=== PATIENT | female | born 1965 | race Caucasian/White ===

== ENCOUNTER 2016-06-01 12:11 | Emergency (ER) | payer BC ==
--- NOTE | 2016-06-01 12:14 | EDM.PDOC ---
ED HPI DIZZINESS - General Chief Complaint: Gastrointestinal Problem Stated Complaint: PROJECTILE VOMITTING Time Seen by Provider: 06/01/16 12:14 Source of Information: Reports: Patient, Old records, RN, RN notes reviewed Exam Limitations: Reports: No limitations - History of Present Illness INITIAL COMMENTS - FREE TEXT/NARRATIVE: Arrives from home by POV with c/o projectile vomiting, abdominal pain, and distention that began last night, but is much worse today. Pt denies fever, chills, constipation, chest pain, or edema. She admits to some "pure water" BM' s last night and today. Pt admits that she drinks 4 beers nightly during the week and more that 6 on the weekends. Symptom Onset Date: 05/31/16 Timing/Duration: Reports: Constant, Getting worse Baseline Function: Reports: ambulatory Quality: Reports: lightheaded (with vomiting) Severity: severe Context, Dizziness: Reports: alcohol abuse - Related Data Allergies/ADRs: Allergies Allergy/AdvReac Type Severity Reaction Status Date / Time peanut Allergy Anaphylactic Verified 12/09/13 00:48 Shock Home Meds: Home Meds Diazepam [Valium] 10 mg PO QID PRN 12/09/13 [History] FLUoxetine [PROzac] 40 mg PO DAILY 12/09/13 [History] Mirtazapine [Remeron] 30 mg PO DAILY 12/09/13 [History] Past Medical History HEENT History: Reports: Hard of hearing, Other (see below) (chronic dental decay ) Gastrointestinal History: Reports: Cholelithiasis [employer]ER History: Reports: Endometriosis Neurological History: Reports: Migraines Psychiatric History: Reports: Anxiety, Depression - Past Surgical History HEENT Surgical History: Reports: Tonsillectomy, Other (see below) Other HEENT Surgeries/Procedures: ear surgery GI Surgical History: Reports: Appendectomy, Cholecystectomy, Colonoscopy, EGD Female Surgical History: Reports: section, Hysterectomy, Salpingo- oophorectomy (B/L) Social & Family History - Family History Family Medical History: Noncontributory - Tobacco Use Smoking Status *Q: Current Every Day Smoker Tobacco Use Within Last Twelve Months: Cigarettes Years of Tobacco use: 20 Packs/Tins Daily: 0.5 Used Tobacco, but Quit: No Smoking Cessation Information Provided To Patient: No Second Hand Smoke Exposure: Yes - Caffeine Use Caffeine Use: Reports: Coffee - Alcohol Use Alcohol Use History: Yes Days Per Week of Alcohol Use: 7 Number of Drinks Per Day: 4 Total Drinks Per Week: 28 Alcohol Use in Last Twelve Months: Yes Alcohol Use Frequency: Daily - Recreational Drug Use Recreational Drug Use: No - Living Situation & Occupation Living situation: Reports: with significant other Occupation: employed ED ROS GENERAL - Review of Systems Review Of Systems: ROS reveals no pertinent complaints other than HPI. ED EXAM, DIZZINESS - Physical Exam Exam: See Below Exam Limited By: No limitations General Appearance: alert, WD/WN, no apparent distress Eye Exam: bilateral eye: normal inspection Nose: normal inspection Throat/Mouth: Normal lips, Normal oropharynx, Normal voice, No airway compromise , Other (dry oral membranes) Head Exam: atraumatic, normocephalic Neck: normal inspection, supple, non-tender, full range of motion Respiratory/Chest: no respiratory distress, lungs clear, normal breath sounds, no accessory muscle use, chest non-tender Cardiovascular: normal peripheral pulses, regular rate, rhythm, no edema, no gallop, no JVD, no murmur, tachycardia GI/Abdominal: distended, guarding, tender (generalized), abnormal bowel sounds: (typmpanic, high pitched and hypoactive bowel sounds) (Female) Exam: Deferred Rectal (Female) Exam: Deferred Neurological: alert, normal mood/affect, CN II-XII intact, no motor/sensory deficits, oriented x 3 Back Exam: normal inspection, full range of motion, NT Extremities: normal inspection, normal range of motion, non-tender, no pedal edema, normal capillary refill Psychiatric: normal affect, normal mood Skin Exam: Warm, Dry, Intact, Normal color, No rash Course - Vital Signs Last Recorded V/S: Last Vital Signs Temp 37.1 C 06/01/16 12:15 Pulse 133 H 06/01/16 12:15 Resp 16 06/01/16 12:15 BP 113/87 06/01/16 12:15 Pulse Ox 95 06/01/16 12:15 - Orders/Labs/Meds Orders: Active Orders 24 hr Category Date Time Status Peripheral IV Care [RC] . DIRECTED Care 06/01/16 12:32 Active CULTURE STOOL [RM] Stat Lab 06/01/16 13:24 Uncollected MVI, Adult with Vitamin K [Infuvite Adult] 10 ml Med 06/01/16 13:46 Active Thiamine [Vitamin B-1] 100 mg Folic Acid 1 mg Lactated Ringers [Ringers, Lactated] 1,000 ml IV .BOLUS Sodium Chloride 0.9% [Saline Flush] [facility] 06/01/16 12:31 Active 10 ml FLUSH ASDIRECTED PRN NG [Nasogastric Orogastric Tube Insertion] [OM.PC] Ot 06/01/16 13:50 Ordered Routine Peripheral IV Insertion Adult [OM.PC] Stat Ot 06/01/16 12:32 Ordered Medication Orders Multivitamins/Minerals 10 ml/Thiamine HCl 100 mg/ Folic Acid 1 mg/ Lactated Ringer's 1,011.2 mls @ 999 mls/hr IV .BOLUS ONE Stop: 06/01/16 14:46 Last Admin: 06/01/16 14:34 Dose: 999 mls/hr Sodium Chloride (Saline Flush) 10 ml FLUSH ASDIRECTED PRN PRN Reason: Keep Vein Open Last Admin: 06/01/16 12:45 Dose: 10 ml Labs: Laboratory Tests 06/01/16 06/01/16 06/01/16 Range/Units 12:39 12:39 13:05 WBC 8.7 (5.0-10.0) 10^3/uL RBC 4.81 (4.2-5.4) 10^6/uL Hgb 15.5 (12.0-16.0) g/dL Hct 47.1 H (37.0-47.0) % MCV 97.9 (80-100) fL MCH 32.2 (27.0-34.0) pg MCHC 32.9 L (33.0-35.0) g/dL Plt Count 422 (150-450) 10^3/uL Neut % (Auto) 79.3 H (42.2-75.2) % Lymph % (Auto) 10.9 L (20.5-50.1) % [place] % (Auto) 9.5 H (2-8) % Eos % (Auto) 0.2 L (1.0-3.0) % Baso % (Auto) 0.1 (0.0-1.0) % Sodium 138 (135-145) mmol/L Potassium 4.0 (3.6-5.0) mmol/L Chloride 97 L (101-111) mmol/L Carbon Dioxide 24.0 (21.0-31.0) mmol/L Anion Gap 21.0 BUN 22 H (7-18) mg/dL Creatinine 1.3 (0.6-1.3) mg/dL Est Cr Clr Drug Dosing 52.90 mL/min Estimated GFR (MDRD) 43 BUN/Creatinine Ratio 16.92 Glucose 135 H (74-105) mg/dL Calcium 9.9 (8.4-10.2) mg/dl Total Bilirubin 1.1 H (0.2-1.0) mg/dL AST 130 H (10-42) IU/L ALT 77 H (10-60) IU/L Alkaline Phosphatase 189 H (42-121) IU/L Total Protein 8.6 H (6.7-8.2) g/dl Albumin 5.1 (3.2-5.5) g/dl Globulin 3.5 Albumin/Globulin Ratio 1.46 Amylase 39 (28-100) U/L Lipase 19 L (22-51) U/L Urine Color (YELLOW) Urine Appearance (CLEAR) Urine pH (5.0-9.0) Ur Specific [place] (1.005-1.030) Urine Protein (NEGATIVE) Urine Glucose (UA) (NEGATIVE) Urine Ketones (NEGATIVE) Urine Occult Blood (NEGATIVE) Urine Nitrite (NEGATIVE) Urine Bilirubin (NEGATIVE) Urine Urobilinogen (0.2-1.0) mg/dL Ur Leukocyte Esterase (NEGATIVE) Urine RBC /HPF Urine WBC (0-5/HPF) /HPF Ur Epithelial Cells /HPF Urine Bacteria (0-FEW/HPF) /HPF Hyaline Casts /LPF Urine Opiates Screen Negative (NEGATIVE) Ur Oxycodone Screen Negative (NEGATIVE) Urine Methadone Screen Negative (NEGATIVE) Ur Barbiturates Screen Negative (NEGATIVE) U Tricyclic Antidepress Negative (NEGATIVE) Ur Phencyclidine Scrn Negative (NEGATIVE) Ur Amphetamine Screen Negative (NEGATIVE) U Methamphetamines Scrn Negative (NEGATIVE) Urine MDMA Screen Negative (NEGATIVE) U Benzodiazepines Scrn Positive H (NEGATIVE) Urine Cocaine Screen Negative (NEGATIVE) U Marijuana (THC) Screen Negative (NEGATIVE) Ethyl Alcohol < 5 mg/dL 06/01/ Range/Units 13:05 WBC (5.0-10.0) 10^3/uL RBC (4.2-5.4) 10^6/uL Hgb (12.0-16.0) g/dL Hct (37.0-47.0) % MCV (80-100) fL MCH (27.0-34.0) pg MCHC (33.0-35.0) g/dL Plt Count (150-450) 10^3/uL Neut % (Auto) (42.2-75.2) % Lymph % (Auto) (20.5-50.1) % [place] % (Auto) (2-8) % Eos % (Auto) (1.0-3.0) % Baso % (Auto) (0.0-1.0) % Sodium (135-145) mmol/L Potassium (3.6-5.0) mmol/L Chloride (101-111) mmol/L Carbon Dioxide (21.0-31.0) mmol/L Anion Gap BUN (7-18) mg/dL Creatinine (0.6-1.3) mg/dL Est Cr Clr Drug Dosing mL/min Estimated GFR (MDRD) BUN/Creatinine Ratio Glucose (74-105) mg/dL Calcium (8.4-10.2) mg/dl Total Bilirubin (0.2-1.0) mg/dL AST (10-42) IU/L ALT (10-60) IU/L Alkaline Phosphatase (42-121) IU/L Total Protein (6.7-8.2) g/dl Albumin (3.2-5.5) g/dl Globulin Albumin/Globulin Ratio Amylase (28-100) U/L Lipase (22-51) U/L Urine Color Yellow (YELLOW) Urine Appearance Slightly cloudy (CLEAR) Urine pH 5.5 (5.0-9.0) Ur Specific [place] >= 1.030 (1.005-1.030) Urine Protein 30 H (NEGATIVE) Urine Glucose (UA) Negative (NEGATIVE) Urine Ketones Trace H (NEGATIVE) Urine Occult Blood Negative (NEGATIVE) Urine Nitrite Negative (NEGATIVE) Urine Bilirubin Moderate H (NEGATIVE) Urine Urobilinogen 0.2 (0.2-1.0) mg/dL Ur Leukocyte Esterase Negative (NEGATIVE) Urine RBC 0-5 /HPF Urine WBC 0-5 (0-5/HPF) /HPF Ur Epithelial Cells Moderate H /HPF Urine Bacteria Many H (0-FEW/HPF) /HPF Hyaline Casts Moderate H /LPF Urine Opiates Screen (NEGATIVE) Ur Oxycodone Screen (NEGATIVE) Urine Methadone Screen (NEGATIVE) Ur Barbiturates Screen (NEGATIVE) U Tricyclic Antidepress (NEGATIVE) Ur Phencyclidine Scrn (NEGATIVE) Ur Amphetamine Screen (NEGATIVE) U Methamphetamines Scrn (NEGATIVE) Urine MDMA Screen (NEGATIVE) U Benzodiazepines Scrn (NEGATIVE) Urine Cocaine Screen (NEGATIVE) U Marijuana (THC) Screen (NEGATIVE) Ethyl Alcohol mg/dL Meds: Medications Generic Name Dose Route Start Last Admin Trade Name Freq PRN Reason Stop Dose Admin Multivitamins/Minerals 10 ml/ 1,011.2 mls @ 999 mls/hr 06/01/16 13:46 14:34 Thiamine HCl 100 mg/ Folic IV 06/01/16 14:46 999 mls/hr Acid 1 mg/ Lactated Ringer's .BOLUS ONE Administration Sodium Chloride 10 ml 06/01/16 12:31 06/01/16 12:45 Saline Flush FLUSH 10 ml ASDIRECTED PRN Administration Keep Vein Open Discontinued Medications Generic Name Dose Route Start Last Admin Trade Name Freq PRN Reason Stop Dose Admin Diazepam 5 mg 06/01/16 13:45 06/01/16 13:56 Valium IVPUSH 06/01/16 13:46 5 mg ONETIME ONE Administration Hydromorphone HCl 1 mg 06/01/16 12:33 06/01/16 12:50 Dilaudid IVPUSH 06/01/16 12:34 1 mg ONETIME ONE Administration Hydromorphone HCl 1 mg 06/01/16 14:36 Dilaudid IVPUSH 06/01/16 14:37 ONETIME ONE Sodium Chloride 1,000 mls @ 999 mls/hr 06/01/16 12:33 06/01/16 12:48 Normal Saline IV 06/01/16 13:33 999 mls/hr .BOLUS ONE Administration Iopamidol 75 ml 06/01/16 13:20 Isovue-300 (61%) IVPUSH 06/01/16 13:21 ONETIME ONE Ondansetron HCl 4 mg 06/01/16 12:33 06/01/16 12:48 Zofran IV 06/01/16 12:34 4 mg ONETIME ONE Administration Ondansetron HCl 4 mg 06/01/16 14:36 Zofran IV 06/01/16 14:37 ONETIME ONE - Radiology Interpretation Free Text/Narrative:: CT Abd/Pelvis: mechanical SBO per Rad. report. CT Results Date: 06/01/16 - Re-Assessments/Exams Free Text/Narrative Re-Assessment/Exam: 06/01/16 14:43 I explained the exam findings, results of all diagnostic tests, working diagnosis, and any potential or additionally considered diagnoses, treatment/ disposition plan, self/home care instructions, rational for the diagnosis/ treatment plan/disposition plan, anticipated course of illness, and follow up instructions to the pt and/or pts family or guardian. The pt and/or pts family or guardian acknowledges understanding of the above explanation(s), and of the signs and symptoms which should prompt the return of the pt to the ER should those or any other concerning symptoms develop. Departure - Departure Time of Disposition: 14:41 Disposition: DC/[facility] to [facility] 02 Condition: serious Clinical Impression: Small bowel obstruction Forms: ED Department Discharge, Interfacility Transfer EMTALA - My Orders Last 24 Hours: My Active Orders 06/01/16 12:31 Sodium Chloride 0.9% [Saline Flush] 10 ml FLUSH ASDIRECTED PRN 06/01/16 12:32 Peripheral IV Care [RC] . DIRECTED Peripheral IV Insertion Adult [OM.PC] Stat 06/01/16 13:24 CULTURE STOOL [RM] Stat 06/01/16 13:46 MVI, Adult with Vitamin K [Infuvite Adult] 10 ml Thiamine [Vitamin B-1] 100 mg Folic Acid 1 mg Lactated Ringers [Ringers, Lactated] 1,000 ml IV .BOLUS 06/01/16 13:50 NG [Nasogastric Orogastric Tube Insertion] [OM.PC] Routine - Assessment/Plan Last 24 Hours: My Active Orders 06/01/16 12:31 Sodium Chloride 0.9% [Saline Flush] 10 ml FLUSH ASDIRECTED PRN 06/01/16 12:32 Peripheral IV Care [RC] . DIRECTED Peripheral IV Insertion Adult [OM.PC] Stat 06/01/16 13:24 CULTURE STOOL [RM] Stat 06/01/16 13:46 MVI, Adult with Vitamin K [Infuvite Adult] 10 ml Thiamine [Vitamin B-1] 100 mg Folic Acid 1 mg Lactated Ringers [Ringers, Lactated] 1,000 ml IV .BOLUS 06/01/16 13:50 NG [Nasogastric Orogastric Tube Insertion] [OM.PC] Routine
[2016-06-01] MEDS ORDERED: Sodium Chloride 0.9% 10 ML Syringe FLUSH PRN (12:31)
[2016-06-01 12:32] VITALS: BP 113/87
[2016-06-01] MEDS ORDERED: HYDROmorphone 1 MG/ML Syringe IVPUSH ONE ×2 (12:33→14:36)
[2016-06-01] MEDS ORDERED: Sodium Chloride 0.9% 1,000 ML IV ONE (12:33)
[2016-06-01] MEDS ORDERED: Ondansetron 4 MG/2 ML SDV IV ONE ×2 (12:33→14:36)
[2016-06-01 13:06] LABS: CHLORIDE,CL 97 mmol/L (101-111); SODIUM,NA 138 mmol/L (135-145)
[2016-06-01] MEDS ORDERED: Iopamidol 612 MG/ML 75 ML Bottle IVPUSH ONE (13:20)
[2016-06-01] MEDS ORDERED: MVI, Adult with Vitamin K 10 ML, Thiamine 100 MG, Folic Acid 1 MG in Lactated Ringers 1... IV ONE ×4 (13:46)
--- NOTE | 2016-06-01 14:15 | CT ---
History: 51-year-old 146 pound female smoker with history "kidney stones" who has had previous hyste rectomy (probable appendectomy") now with abdominal distention and pain. Scan technique: Volume acquisition of data from the abdomen and pelvis obtained without oral contras t but during intravenous ministration 75 cc nonionic Isovue while patient was lying supine on the [facility] multi slice CT scanner [place], [place]. All data archived in [facility] PACS system for storage, reformatting and study. Interpretation: Abnormal. Generalized dilatation fluid-filled small bowel loops this patient with numerous surgical clips in t he right hemipelvis following the iliac lymph node chain. Differential air-fluid levels identified o n the crosstable lateral projection consistent with mechanical small bowel obstruction. Surgical clips gallbladder fossa. Liver, stomach, spleen, pancreas and adrenal glands unremarkable. Normal reniform size, axis and configuration without sign of cortical mass lesion, nephrolithiasis o r obstructive uropathy. No abdominal soft tissue mass lesion but, inflammatory "dirty" peritoneal fat, (shotty retroperitone al lymphadenopathy), ascites or free intraperitoneal air. Lung bases clear. Normal caliber aortoiliac vessels with atheromatous calcifications. Lower lumbar d isc disease and hypertrophic arthritic changes of the spine. CONCLUSION: Mechanical small bowel obstruction.
== END 2016-06-01 14:52 ==
LOC: DL.ED 12:11
DX: K56.69 Other intestinal obstruction (principal); R11.12 Projectile vomiting; R42 Dizziness and giddiness; F10.10 Alcohol abuse, uncomplicated; F41.9 Anxiety disorder, unspecified; F32.9 Major depressive disorder, single episode, unspecified; Z79.899 Other long term (current) drug therapy; F17.210 Nicotine dependence, cigarettes, uncomplicated
CPT/HCPCS: 36415; 74177; 80053; 80305; 81001; 82150; 83690; 85025; 96361; 96374; 96375; 96376; 99285; G0480; J1170; J2405; J3360; J3411; J7030; J7050; J7120; Q9967; J3490

== ENCOUNTER 2016-10-21 03:10 | Emergency (ER) | payer BC ==
[2016-10-21] MEDS ORDERED: traMADol 50 MG Tab PO ONE (03:11)
[2016-10-21] MEDS ORDERED: Clindamycin HCl 150 MG Cap PO ONE (03:29)
[2016-10-21] MEDS ORDERED: traMADol 50 MG Tab ONE (03:30)
--- NOTE | 2016-10-21 03:35 | EDM.PDOC ---
ED HPI GENERAL MEDICAL PROBLEM - General Chief Complaint: ENT Problem Stated Complaint: ABCESS TOOTH Time Seen by Provider: 10/21/16 03:31 Source of Information: Reports: Patient History Limitations: Reports: No Limitations - History of Present Illness INITIAL COMMENTS - FREE TEXT/NARRATIVE: c/o tooth abscess worse tonight with right jaw swelling. Right Lower Tooth/Teeth Pain Score (Numeric/FACES): 8 - Related Data Allergies Allergy/AdvReac Type Severity Reaction Status Date / Time peanut Allergy Anaphylactic Verified 10/21/16 03:14 Shock Home Meds: Home Meds Diazepam [Valium] 10 mg PO TID PRN 12/09/13 [History] FLUoxetine [PROzac] 60 mg PO DAILY 12/09/13 [History] Mirtazapine [Remeron] 40 mg PO DAILY 12/09/13 [History] Past Medical History HEENT History: Reports: Hard of Hearing, Other (See Below) Other HEENT History: wears hearing aid Gastrointestinal History: Reports: Cholelithiasis [employer] History: Reports: Endometriosis Neurological History: Reports: Migraines Psychiatric History: Reports: Anxiety, Depression - Past Surgical History HEENT Surgical History: Reports: Tonsillectomy, Other (See Below) Female Surgical History: Reports: Section, Hysterectomy, Salpingo- Oophorectomy Social & Family History - Family History Family Medical History: Noncontributory - Tobacco Use Smoking Status *Q: Current Every Day Smoker Years of Tobacco use: 20 Packs/Tins Daily: 0.5 Used Tobacco, but Quit: No Second Hand Smoke Exposure: Yes - Caffeine Use Caffeine Use: Reports: Coffee - Alcohol Use Days Per Week of Alcohol Use: 7 Number of Drinks Per Day: 4 Total Drinks Per Week: 28 - Recreational Drug Use Recreational Drug Use: No - Living Situation & Occupation Living situation: Reports: with Significant Other Occupation: Employed ED ROS ENT - Review of Systems Review Of Systems: ROS reveals no pertinent complaints other than HPI. ED EXAM, ENT - Physical Exam Exam: See Below Exam Limited By: No Limitations General Appearance: Alert, WD/WN, Mild Distress, Other (crying) Ears: Hearing Grossly Normal Mouth/Throat: Dental Abcess, Dental Pain, Dental Tenderness Head: Atraumatic Neck: Non-Tender, Lymphadenopathy (R) Respiratory/Chest: No Respiratory Distress Cardiovascular: Regular Rate, Rhythm GI/Abdominal: Soft, Non-Tender Neurological: Alert, Oriented, Normal Cognition, Normal Gait, No Motor/Sensory Deficits Psychiatric: Tearful Skin: Warm, Dry, Normal Color Lymphatic: No Adenopathy Course - Orders/Labs/Meds Meds: Medications Discontinued Medications Generic Name Dose Route Start Last Admin Trade Name Freq PRN Reason Stop Dose Admin Clindamycin HCl 150 mg 10/21/16 03:29 Cleocin PO 10/21/16 03:30 ONETIME ONE Departure - Departure Time of Disposition: 03:33 Disposition: Home, Self-Care 01 Condition: Good Clinical Impression: Dental abscess, Dental caries - Discharge Information Instructions: Dental Caries, [id number] Additional Instructions: 1) avoid solid foods 2) see Dentist rx given; clindamycin 150mg qid x 40 tramadol 50mg tid prn x 20
[2016-10-21 03:49] VITALS: BP 179/111
== END 2016-10-21 03:53 | disposition home or self-care (01) ==
LOC: DL.ED 03:10
DX: K04.7 Periapical abscess without sinus (principal); K02.9 Dental caries, unspecified; G43.909 Migraine, unspecified, not intractable, without status migrainosus; F41.9 Anxiety disorder, unspecified; F32.9 Major depressive disorder, single episode, unspecified; F17.210 Nicotine dependence, cigarettes, uncomplicated; Z98.890 Other specified postprocedural states; Z90.710 Acquired absence of both cervix and uterus; Z91.018 Allergy to other foods; Z79.899 Other long term (current) drug therapy
CPT/HCPCS: 99282; A9270

== ENCOUNTER 2017-01-28 10:21 | Emergency (ER) | payer BC, MEDICAID ==
[2017-01-28 10:53] VITALS: BP 141/95
[2017-01-28] MEDS ORDERED: Sodium Chloride 0.9% 10 ML Syringe FLUSH PRN (11:18)
[2017-01-28] MEDS ORDERED: GI Cocktail Oral Solution 30 ML PO ONE (11:19)
[2017-01-28 12:03] LABS: CHLORIDE,CL 102 mmol/L (101-111); SODIUM,NA 140 mmol/L (135-145)
--- NOTE | 2017-01-28 12:20 | EDM.PDOC ---
Scribed by Ashley Rodriguez 01/28/17 1220 for Aman De Leon MD ED HPI GENERAL MEDICAL PROBLEM - General Chief Complaint: Abdominal Pain Stated Complaint: PAIN RIGHT QUAD OF ABD Time Seen by Provider: 01/28/17 11:10 Source of Information: Reports: Patient, RN, RN Notes Reviewed History Limitations: Reports: No Limitations - History of Present Illness INITIAL COMMENTS - FREE TEXT/NARRATIVE: Patient presented with complaint of abdominal pain at epigastric area that radiates straight through to the back and into the right upper abdomen. Denies fever, chills, nausea, vomiting, diarrhea, cough or urinary symptoms. Location: Reports: Abdomen Quality: Reports: Ache Severity: Severe Improves with: Reports: None Worsens with: Reports: None Associated Symptoms: Reports: No Other Symptoms Right Abdomen Pain Score (Numeric/FACES): 8 - Related Data Allergies Allergy/AdvReac Type Severity Reaction Status Date / Time peanut Allergy Anaphylactic Verified 01/28/17 10:53 Shock Home Meds: Home Meds Diazepam [Valium] 10 mg PO TID PRN 12/09/13 [History] FLUoxetine [PROzac] 60 mg PO DAILY 12/09/13 [History] Mirtazapine [Remeron] 30 mg PO DAILY 12/09/13 [History] Ibuprofen 200 mg PO ASDIRECTED PRN 01/28/17 [History] Past Medical History HEENT History: Reports: Hard of Hearing, Other (See Below) Other HEENT History: wears hearing aid Cardiovascular History: Reports: None Respiratory History: Reports: None Gastrointestinal History: Reports: Bowel Obstruction, Cholelithiasis, Other ( See Below) Other Gastrointestinal History: barium swallow studies Genitourinary History: Reports: None 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 Neurological History: Reports: Migraines Psychiatric History: Reports: Anxiety, Depression, PTSD Endocrine/Metabolic History: Reports: None Hematologic History: Reports: None Immunologic History: Reports: None Oncologic (Cancer) History: Reports: None Dermatologic History: Reports: None - Infectious Disease History Infectious Disease History: Reports: Chicken Pox, Measles, Mumps - Past Surgical History HEENT Surgical History: Reports: Tonsillectomy, Other (See Below) Other HEENT Surgeries/Procedures: prosthetic inner ear bone GI Surgical History: Reports: Appendectomy, Cholecystectomy, Colonoscopy Female Surgical History: Reports: Section, Hysterectomy, Salpingo- Oophorectomy Musculoskeletal Surgical History: Reports: Arthroscopic Procedure Social & Family History - Family History Family Medical History: Noncontributory - Tobacco Use Smoking Status *Q: Current Every Day Smoker Years of Tobacco use: 20 Packs/Tins Daily: 0.5 Used Tobacco, but Quit: No Second Hand Smoke Exposure: No - Caffeine Use Caffeine Use: Reports: None - Alcohol Use Days Per Week of Alcohol Use: 7 Number of Drinks Per Day: 4 Total Drinks Per Week: 28 - Recreational Drug Use Recreational Drug Use: No - Living Situation & Occupation Living situation: Reports: with Significant Other Occupation: Employed ED ROS GENERAL - Review of Systems Review Of Systems: ROS reveals no pertinent complaints other than HPI. ED EXAM, GI/ABD - Physical Exam Exam: See Below Exam Limited By: No Limitations General Appearance: Other (uncomfortable but nontender appearing.) Eyes: Right: Normal Appearance, EOMI, Abnormal EOM, Eyelid Inflammation, Pale Conjunctiva, Erythema, Nystagmus, Periorbital Swelling, Proptosis Neck: Normal Inspection, Supple, Non-Tender, Full Range of Motion Respiratory/Chest: No Respiratory Distress, Lungs Clear, Normal Breath Sounds, No Accessory Muscle Use, Chest Non-Tender Cardiovascular: Normal Peripheral Pulses, Regular Rate, Rhythm, No Edema, No Gallop, No JVD, No Murmur, No Rub GI/Abdominal Exam: Soft, Tender (epigastric and right upper quadrant. ), Other ( nondistended.). No: Guarding, Rigid, Rebound Back Exam: Normal Inspection, Full Range of Motion, NT Extremities: Normal Inspection, Normal Range of Motion, Non-Tender, Normal Capillary Refill, No Pedal Edema Neurological: Alert, Oriented, CN II-XII Intact, Normal Cognition, Normal Gait, Normal Reflexes, No Motor/Sensory Deficits Psychiatric: Normal Affect, Normal Mood Skin Exam: Warm, Dry, Intact, Normal Color, No Rash Course - Vital Signs Last Recorded V/S: Last Vital Signs Temp 36.6 C 01/28/17 10:46 Pulse 86 01/28/17 10:46 Resp 18 01/28/17 10:46 BP 141/95 H 01/28/17 10:46 Pulse Ox 97 01/28/17 10:46 - Orders/Labs/Meds Orders: Active Orders 24 hr Category Date Time Status Peripheral IV Care [RC] . DIRECTED Care 01/28/17 11:19 Active Sodium Chloride 0.9% [Saline Flush] Med 01/28/17 11:18 Active 10 ml FLUSH ASDIRECTED PRN Peripheral IV Insertion Adult [OM.PC] Stat Oth 01/28/17 11:19 Ordered Medication Orders Sodium Chloride (Saline Flush) 10 ml FLUSH ASDIRECTED PRN PRN Reason: Keep Vein Open Labs: Laboratory Tests 01/28/17 01/28/17 01/28/17 Range/Units 11:22 11:31 11:31 WBC 9.8 (5.0-10.0) 10^3/uL RBC 4.69 (4.2-5.4) 10^6/uL Hgb 14.6 (12.0-16.0) g/dL Hct 44.3 (37.0-47.0) % MCV 94.5 D (80-100) fL MCH 31.1 (27.0-34.0) pg MCHC 33.0 (33.0-35.0) g/dL Plt Count 289 D (150-450) 10^3/uL Neut % (Auto) 87.8 H (42.2-75.2) % Lymph % (Auto) 5.2 L (20.5-50.1) % [place] % (Auto) 6.9 (2-8) % Eos % (Auto) 0.0 L (1.0-3.0) % Baso % (Auto) 0.1 (0.0-1.0) % Sodium 140 (135-145) mmol/L Potassium 3.8 (3.6-5.0) mmol/L Chloride 102 (101-111) mmol/L Carbon Dioxide 27.0 (21.0-31.0) mmol/L Anion Gap 14.8 BUN 20 H (7-18) mg/dL Creatinine 0.5 L (0.6-1.3) mg/dL Est Cr Clr Drug Dosing 137.55 mL/min Estimated GFR (MDRD) > 60 BUN/Creatinine Ratio 40.00 Glucose 130 H (74-105) mg/dL Calcium 9.5 (8.4-10.2) mg/dl Total Bilirubin 0.9 (0.2-1.0) mg/dL AST 249 H (10-42) IU/L ALT 113 H (10-60) IU/L Alkaline Phosphatase 134 H (42-121) IU/L Total Protein 7.6 (6.7-8.2) g/dl Albumin 4.5 (3.2-5.5) g/dl Globulin 3.1 Albumin/Globulin Ratio 1.45 Amylase 92 (28-100) U/L Lipase 100 H (22-51) U/L Urine Color Yellow (YELLOW) Urine Appearance Slightly cloudy (CLEAR) Urine pH 7.0 (5.0-9.0) Ur Specific [place] 1.025 (1.005-1.030) Urine Protein Negative (NEGATIVE) Urine Glucose (UA) Negative (NEGATIVE) Urine Ketones Negative (NEGATIVE) Urine Occult Blood Negative (NEGATIVE) Urine Nitrite Negative (NEGATIVE) Urine Bilirubin Negative (NEGATIVE) Urine Urobilinogen 0.2 (0.2-1.0) mg/dL Ur Leukocyte Esterase Negative (NEGATIVE) Urine RBC 0-5 /HPF Urine WBC 0-5 (0-5/HPF) /HPF Ur Epithelial Cells Few /HPF Urine Bacteria Rare (0-FEW/HPF) /HPF Urine Mucus Few H /LPF Meds: Medications Generic Name Dose Route Start Last Admin Trade Name Freq PRN Reason Stop Dose Admin Sodium Chloride 10 ml 01/28/17 11:18 Saline Flush FLUSH ASDIRECTED PRN Keep Vein Open Discontinued Medications Generic Name Dose Route Start Last Admin Trade Name Freq PRN Reason Stop Dose Admin Al Hydroxide/Mg Hydroxide 30 ml 01/28/17 11:19 01/28/17 11:28 Gi Cocktail PO 01/28/17 11:20 30 ml ONETIME ONE Administration Departure - Departure Time of Disposition: 12:11 Disposition: Home, Self-Care 01 Condition: Good Clinical Impression: Elevated liver enzymes Gastritis Qualifiers: Gastritis type: unspecified gastritis Chronicity: acute Gastritis bleeding: without bleeding Qualified Code(s): K29.00 - Acute gastritis without bleeding - Discharge Information Instructions: Gastritis, Adult, [id number], Food Choices for Peptic Ulcer Disease Forms: ED Department Discharge Additional Instructions: Carafate 1grams. Omeprazole 20mg. Avoid fatty, greasy and fried foods. Avoid spicy foods and alcohol. No aspirin, ibuprofen or other NSAIDs. Follow up with your physician for repeat labs of your elevated liver enzymes and referral for upper endoscopy. - My Orders Last 24 Hours: My Active Orders 01/28/17 11:18 Sodium Chloride 0.9% [Saline Flush] 10 ml FLUSH ASDIRECTED PRN 01/28/17 11:19 Peripheral IV Care [RC] . DIRECTED Peripheral IV Insertion Adult [OM.PC] Stat - Assessment/Plan Last 24 Hours: My Active Orders 01/28/17 11:18 Sodium Chloride 0.9% [Saline Flush] 10 ml FLUSH ASDIRECTED PRN 01/28/17 11:19 Peripheral IV Care [RC] . DIRECTED Peripheral IV Insertion Adult [OM.PC] Stat I have read and agree with the documentation that has been completed regarding this visit. By signing this record, I attest that the documentation was completed in my physical presence and is an accurate record of the encounter.
== END 2017-01-28 12:25 | disposition home or self-care (01) ==
LOC: DL.ED 10:21
DX: K29.00 Acute gastritis without bleeding (principal); R79.89 Other specified abnormal findings of blood chemistry; F17.210 Nicotine dependence, cigarettes, uncomplicated; Z91.010 Allergy to peanuts; Z79.899 Other long term (current) drug therapy
CPT/HCPCS: 36415; 80053; 81001; 82150; 83690; 85025; 99284; A9270

== ENCOUNTER → 2017-01-28 | Emergency (ER) | payer MEDICAID | END | disposition left against medical advice (07) | LOC: DL.ED 17:47 | DX: Z53.21 Procedure and treatment not carried out due to patient leaving prior to being seen by health care provider (principal) ==

== ENCOUNTER 2017-02-16 18:24 | Emergency (ER) | payer MEDICAID ==
[2017-02-16 18:32] VITALS: BP 158/88
[2017-02-16] MEDS ORDERED: Meclizine 12.5 MG Tab PO ONE (18:45)
[2017-02-16] MEDS ORDERED: Meclizine 12.5 MG Tab ONE (18:49)
--- NOTE | 2017-02-16 18:51 | EDM.PDOC ---
ED HPI GENERAL MEDICAL PROBLEM - General Chief Complaint: ENT Problem Stated Complaint: EAR STARTED BLEEDING, [phone] Time Seen by Provider: 02/16/17 18:40 Source of Information: Reports: Patient History Limitations: Reports: No Limitations - History of Present Illness INITIAL COMMENTS - FREE TEXT/NARRATIVE: This 51 yo female patient reports to the ED with bleeding from her left ear and dizziness. The patient reports she was working today when a coworker noticed that her left ear was bleeding. The patient also reports she noticed some dizziness that started today at about 1730. The patient initially denied itching or scratching her ear. The patient reports no pain or other drainage from her left ear. 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 The patient has not had any previous similar symptoms. Onset: Today Duration: Minutes:, Constant Location: Reports: Head (left ear and dizziness) Severity: Moderate Improves with: Reports: None Worsens with: Reports: None Associated Symptoms: Reports: No Other Symptoms - Related Data Allergies Allergy/AdvReac Type Severity Reaction Status Date / Time peanut Allergy Anaphylactic Verified 02/16/17 18:32 Shock Home Meds: Home Meds Diazepam [Valium] 10 mg PO TID PRN 12/09/13 [History] FLUoxetine [PROzac] 60 mg PO DAILY 12/09/13 [History] Mirtazapine [Remeron] 30 mg PO DAILY 12/09/13 [History] Ibuprofen 200 mg PO ASDIRECTED PRN 01/28/17 [History] Past Medical History HEENT History: Reports: Hard of Hearing, Other (See Below) Other HEENT History: wears hearing aid Cardiovascular History: Reports: None Respiratory History: Reports: None Gastrointestinal History: Reports: Bowel Obstruction, Cholelithiasis, Other ( See Below) Other Gastrointestinal History: barium swallow studies Genitourinary History: Reports: None 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 Neurological History: Reports: Migraines Psychiatric History: Reports: Anxiety, Depression, PTSD Endocrine/Metabolic History: Reports: None Hematologic History: Reports: None Immunologic History: Reports: None Oncologic (Cancer) History: Reports: None Dermatologic History: Reports: None - Infectious Disease History Infectious Disease History: Reports: Chicken Pox, Measles, Mumps - Past Surgical History Head Surgeries/Procedures: Reports: None HEENT Surgical History: Reports: Tonsillectomy, Other (See Below) Other HEENT Surgeries/Procedures: prosthetic inner ear bone GI Surgical History: Reports: Appendectomy, Cholecystectomy, Colonoscopy Female Surgical History: Reports: Section, Hysterectomy, Salpingo- Oophorectomy Musculoskeletal Surgical History: Reports: Arthroscopic Procedure Social & Family History - Family History Family Medical History: Noncontributory - Tobacco Use Smoking Status *Q: Never Smoker Years of Tobacco use: 20 Packs/Tins Daily: 0.5 Used Tobacco, but Quit: No Second Hand Smoke Exposure: No - Caffeine Use Caffeine Use: Reports: None - Alcohol Use Days Per Week of Alcohol Use: 7 Number of Drinks Per Day: 4 Total Drinks Per Week: 28 - Recreational Drug Use Recreational Drug Use: No - Living Situation & Occupation Living situation: Reports: with Significant Other Occupation: Employed ED ROS ENT - Review of Systems Review Of Systems: ROS reveals no pertinent complaints other than HPI. ED EXAM, ENT - Physical Exam Exam: See Below Exam Limited By: No Limitations General Appearance: Alert, WD/WN, No Apparent Distress Eye Exam: Bilateral Eye: EOMI, Normal Inspection, PERRL Ears: Canal Blood (middle of left canal) Nose: Normal Inspection, Normal Mucousa, No Blood Mouth/Throat: Normal Inspection, Normal Gums, Normal Lips, Normal Oropharynx, Normal Teeth Head: Atraumatic, Normocephalic Neck: Normal Inspection, Supple, Non-Tender, Full Range of Motion Respiratory/Chest: No Respiratory Distress, Lungs Clear, Normal Breath Sounds, No Accessory Muscle Use, Chest Non-Tender Cardiovascular: Normal Peripheral Pulses, Regular Rate, Rhythm, No Edema, No Gallop, No JVD, No Murmur, No Rub GI/Abdominal: Normal Bowel Sounds, Soft, Non-Tender, No Organomegaly, No Distention, No Abnormal Bruit, No Mass (Female) Exam: Deferred Rectal (Female) Exam: Deferred Back: Normal Inspection, Full Range of Motion Extremities: Normal Inspection, Normal Range of Motion, Non-Tender, No Pedal Edema, Normal Capillary Refill Neurological: Alert, Oriented, CN II-XII Intact, Normal Cognition, Normal Gait, Normal Reflexes, No Motor/Sensory Deficits Psychiatric: Normal Affect, Normal Mood Skin: Warm, Dry, Intact, Normal Color, No Rash Lymphatic: No Adenopathy Course - Vital Signs Last Recorded V/S: Last Vital Signs Temp 36.6 C 02/16/17 18:31 Pulse 114 H 12/21/17 18:31 Resp 18 02/16/17 18:31 BP 158/88 H 02/16/17 18:31 Pulse Ox 95 02/16/17 18:31 - Orders/Labs/Meds Orders: Active Orders 24 hr Category Date Time Status Meclizine [Antivert] Med 02/16/17 18:45 Once 25 mg PO ONETIME ONE Medication Orders Meclizine HCl (Antivert) 25 mg PO ONETIME ONE Stop: 02/16/17 18:46 Meds: Medications Generic Name Dose Route Start Last Admin Trade Name Freq PRN Reason Stop Dose Admin Meclizine HCl 25 mg 02/16/17 18:45 Antivert PO 02/16/17 18:46 ONETIME ONE Departure - Departure Time of Disposition: 18:51 Disposition: Home, Self-Care 01 Condition: Fair Clinical Impression: Vertigo Abrasion of left ear canal Qualifiers: Encounter type: initial encounter Qualified Code(s): S00.412A - Abrasion of left ear, initial encounter - Discharge Information Instructions: Vertigo, [id number], Abrasion, [id number] Care Plan Goals: The patient was advised of the examination results during the visit. The patient was given a dose of Meclizine for her dizziness. The patient should continue to monitor the bleeding from her left ear canal. If the patient has any additional symptoms or concerns, the patient should follow-up with her primary care facility or return to the emergency department. - My Orders Last 24 Hours: My Active Orders 02/16/17 18:45 Meclizine [Antivert] 25 mg PO ONETIME ONE - Assessment/Plan Last 24 Hours: My Active Orders 02/16/17 18:45 Meclizine [Antivert] 25 mg PO ONETIME ONE
== END 2017-02-16 19:04 | disposition home or self-care (01) ==
LOC: DL.ED 18:24
DX: S00.412A Abrasion of left ear, initial encounter (principal); R42 Dizziness and giddiness; F32.9 Major depressive disorder, single episode, unspecified; Z91.010 Allergy to peanuts; Z79.899 Other long term (current) drug therapy; X58.XXXA Exposure to other specified factors, initial encounter
CPT/HCPCS: 99282; A9270; 99283

== ENCOUNTER 2017-09-08 09:49 | Emergency (ER) | payer BC, MEDICAID ==
[2017-09-08] MEDS ORDERED: SUMAtriptan 6 MG/0.5 ML SDV SUBCUT ONE (10:13)
[2017-09-08] MEDS ORDERED: Ondansetron 4 MG Tab.DIS PO ONE (10:17)
[2017-09-08 10:18] VITALS: BP 167/69
--- NOTE | 2017-09-08 10:28 | EDM.PDOC ---
ED HPI GENERAL MEDICAL PROBLEM - General Chief Complaint: Headache Stated Complaint: MIGRAINE [phone] Time Seen by Provider: 09/08/17 10:10 Source of Information: Reports: Patient History Limitations: Reports: No Limitations - History of Present Illness INITIAL COMMENTS - FREE TEXT/NARRATIVE: This 52 yo female patient reports to the ED with a migraine headache. The patient reports her symptoms started last night with an Aura that evolved into a migraine. The patient reports that she is also nauseated at this time. The patient reports that she has a history of migraine headaches, but has not had one in a "long time". The patient has not taken anything for temporary symptom relief. Onset Date: 09/07/17 Onset Time: 20:00 Duration: Constant, Getting Worse Location: Reports: Head (right posterior neck and head) Quality: Reports: Ache, Sharp, Stabbing Severity: Severe Improves with: Reports: None Worsens with: Reports: None Associated Symptoms: Reports: No Other Symptoms Head Pain Score (Numeric/FACES): 9 - Related Data Allergies Allergy/AdvReac Type Severity Reaction Status Date / Time peanut Allergy Anaphylactic Verified 02/16/17 18:32 Shock Home Meds: Home Meds Diazepam [Valium] 10 mg PO TID PRN 12/09/13 [History] FLUoxetine [PROzac] 60 mg PO DAILY 12/09/13 [History] Mirtazapine [Remeron] 30 mg PO BEDTIME 12/09/13 [History] Ibuprofen 200 mg PO ASDIRECTED PRN 01/28/17 [History] Propranolol [Inderal] 1 tab PO BID 09/08/17 [History] Past Medical History HEENT History: Reports: Hard of Hearing, Other (See Below) Other HEENT History: wears hearing aid Cardiovascular History: Reports: None Respiratory History: Reports: None Gastrointestinal History: Reports: Bowel Obstruction, Cholelithiasis, Other ( See Below) Other Gastrointestinal History: barium swallow studies Genitourinary History: Reports: None 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 Neurological History: Reports: Migraines Psychiatric History: Reports: Anxiety, Depression, PTSD Endocrine/Metabolic History: Reports: None Hematologic History: Reports: None Immunologic History: Reports: None Oncologic (Cancer) History: Reports: None Dermatologic History: Reports: None - Infectious Disease History Infectious Disease History: Reports: Chicken Pox, Measles, Mumps - Past Surgical History Head Surgeries/Procedures: Reports: None HEENT Surgical History: Reports: Tonsillectomy, Other (See Below) Other HEENT Surgeries/Procedures: prosthetic inner ear bone GI Surgical History: Reports: Appendectomy, Cholecystectomy, Colonoscopy Female Surgical History: Reports: Section, Hysterectomy, Salpingo- Oophorectomy Musculoskeletal Surgical History: Reports: Arthroscopic Procedure Social & Family History - Family History Family Medical History: Noncontributory - Tobacco Use Smoking Status *Q: Current Every Day Smoker Years of Tobacco use: 20 Packs/Tins Daily: 1 - Caffeine Use Caffeine Use: Reports: None - Recreational Drug Use Recreational Drug Use: No - Living Situation & Occupation Living situation: Reports: with Significant Other Occupation: Employed ED ROS GENERAL - Review of Systems Review Of Systems: ROS reveals no pertinent complaints other than HPI. - Physical Exam Exam: Not Obtained Exam Limited By: No Limitations General Appearance: Alert, WD/WN, Moderate Distress Eye Exam: Bilateral Eye: EOMI, Normal Inspection, PERRL Ears: Normal External Exam, Normal Canal, Hearing Grossly Normal, Normal TMs, Other (right hearing aid in place) Nose: Normal Inspection, Normal Mucosa, No Blood Throat/Mouth: Normal Inspection, Normal Lips, Normal Teeth, Normal Gums, Normal Oropharynx, Normal Voice, No Airway Compromise Head Exam: Atraumatic, Normocephalic Neck: Normal Inspection, Supple, Non-Tender, Full Range of Motion Respiratory/Chest: No Respiratory Distress, Lungs Clear, Normal Breath Sounds, No Accessory Muscle Use, Chest Non-Tender Cardiovascular: Normal Peripheral Pulses, Regular Rate, Rhythm, No Edema, No Gallop, No JVD, No Murmur, No Rub GI/Abdominal: Normal Bowel Sounds, Soft, Non-Tender, No Organomegaly, No Distention, No Abnormal Bruit, No Mass (Female) Exam: Deferred Rectal (Female) Exam: Deferred Neuro Exam (Abbreviated): Alert, Oriented, CN II-XII Intact, Normal Cognition, Normal Gait, Normal Reflexes, No Motor/Sensory Deficits Back Exam: Normal Inspection, Full Range of Motion, NT Extremities: Normal Inspection, Normal Range of Motion, Non-Tender, No Pedal Edema, Normal Capillary Refill Psychiatric: Normal Affect, Normal Mood Skin Exam: Warm, Dry, Intact, Normal Color, No Rash Course - Vital Signs Last Recorded V/S: Last Vital Signs Temp 36.6 C 09/08/17 10:08 Pulse 87 09/08/17 10:08 Resp 16 09/08/17 10:08 BP 167/69 H 09/08/17 10:08 Pulse Ox 95 09/08/17 10:08 - Orders/Labs/Meds Orders: Active Orders 24 hr Category Date Time Status Ondansetron [Zofran ODT] Med 09/08/17 10:17 Once 4 mg PO ONETIME ONE SUMAtriptan [Imitrex] Med 09/08/17 10:13 Once 6 mg SUBCUT ONETIME ONE Departure - Departure Time of Disposition: 10:22 Disposition: Home, Self-Care 01 Condition: Fair Clinical Impression: Migraine headache with aura Qualifiers: Status migrainosus presence: without status migrainosus Intractability: intractable Qualified Code(s): G43.119 - Migraine with aura, intractable, without status migrainosus - Discharge Information *PRESCRIPTION DRUG MONITORING PROGRAM REVIEWED*: Not Applicable *COPY OF PRESCRIPTION DRUG MONITORING REPORT IN PATIENT ANGELIA: Not Applicable Instructions: Migraine Headache, [id number] Referrals: Sarah Jeffrey MD [Primary Care Provider] - Care Plan Goals: The patient was advised of the examination results during the visit. The patient was given an injection of Imitrex and an oral dose of Zofran. The patient was encouraged to rest over the next 24 hours. If the patient has any additional symptoms or concerns, the patient should follow-up with her primary care facility or return to the emergency department. - My Orders Last 24 Hours: My Active Orders 09/08/17 10:13 SUMAtriptan [Imitrex] 6 mg SUBCUT ONETIME ONE 09/08/17 10:17 Ondansetron [Zofran ODT] 4 mg PO ONETIME ONE - Assessment/Plan Last 24 Hours: My Active Orders 09/08/17 10:13 SUMAtriptan [Imitrex] 6 mg SUBCUT ONETIME ONE 09/08/17 10:17 Ondansetron [Zofran ODT] 4 mg PO ONETIME ONE
== END 2017-09-08 10:41 | disposition home or self-care (01) ==
LOC: DL.ED 09:49
DX: G43.119 Migraine with aura, intractable, without status migrainosus (principal); F17.210 Nicotine dependence, cigarettes, uncomplicated; Z91.010 Allergy to peanuts; Z79.899 Other long term (current) drug therapy
CPT/HCPCS: 96361; 96372; 96374; 99283

== ENCOUNTER 2018-12-08 07:20 | Inpatient (IN) | payer MEDICAID ==
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
[2018-12-08] MEDS ORDERED: Sodium Chloride 0.9% 1,000 ML IV ONE (07:29)
[2018-12-08] MEDS ORDERED: Ondansetron 4 MG/2 ML SDV IV ONE ×2 (07:29→08:54)
[2018-12-08] MEDS ORDERED: Morphine 4 MG/ML Syringe IVPUSH ONE ×2 (07:46→09:45)
[2018-12-08] MEDS: Sodium Chloride 0.9% 10 ML Syringe FLUSH PRN ×2 (07:48→11:21)
[2018-12-08 08:16] LABS: ANION GAP 16.8; CHLORIDE,CL 101 mmol/L (101-111); SODIUM,NA 138 mmol/L (135-145)
[2018-12-08] MEDS ORDERED: Iopamidol 612 MG/ML 75 ML Bottle IVPUSH ONE (08:17)
[2018-12-08] MEDS ORDERED: Midazolam 1 MG/ML 2 ML SDV IVPUSH ONE (08:50)
--- NOTE | 2018-12-08 10:56 | PCM.HP ---
H&P History of Present Illness - General Date of Service: 12/08/18 Admit Problem/Dx: Admission Diagnosis/Problem Admission Diagnosis/Problem Small bowel obstruction Source of Information: Patient History Limitations: Reports: No Limitations - History of Present Illness Initial Comments - Free Text/Narative: Sally is 53 y/o F with PMH of previous SBO, multiple abdominal surgeries ( hysterectomy, appendectomy, and cholecystectomy). She presented to the ED via [facility] with severe abdominal pain and cramping associated with nausea, vomiting. Patient reports she ate meat balls last night and started having heart sarkar.She went to bed but around 11:30 PM she started having severe abdominal pain. Abdominal pain was crampy in nature and on and off initially but now constant. This was associated with nausea and vomiting. She had several episodes of emesis. Emesis was mainly undigested food. She als had several episodes of liquid stool. Last bowel movement was in te ED. Above symptoms got worse and she decided to come to the ED this morning. She endorsed abdominal distension. She denies fever, chills. No hematemesis or melena. She was recently discharged from [facility] for SBO requiring no surgical intervention. In the ED her vitals were unremarkable. Labs were essentially unremarkable. CT abdomen and pelvis showed high grade partial small bowel obstruction with transition point in the posterior right lower pelvis at the site of postsurgical change associated with long segment ileal wall thickening. NGT was placed. Patient will be admitted to the hospital for further management. Due to inclement weather patient is unable to be transferred. Onset of Symptoms: Reports: Today Duration of Symptoms: Reports: Hour(s): Location: Reports: Abdomen Quality: Reports: Other (cramps) Improves with: Reports: None Worsens with: Reports: None Associated Symptoms: Reports: No Other Symptoms - Related Data Allergies/Adverse Reactions: Allergies Allergy/AdvReac Type Severity Reaction Status Date / Time Dairy Products Allergy Diarrhea Verified 12/08/18 10:33 Egg Derived Allergy Vomiting Verified 12/08/18 10:33 peanut Allergy Anaphylactic Verified 12/08/18 10:33 Shock Sulfa (Sulfonamide AdvReac Anxiety Verified 12/08/18 10:33 Antibiotics) sulfamethoxazole AdvReac Anxiety Verified 12/08/18 10:33 [From Bactrim] trimethoprim [From Bactrim] AdvReac Anxiety Verified 12/08/18 10:33 Home Medications: Home Meds Diazepam [Valium] 15 mg PO TID PRN 12/09/13 [History] Mirtazapine [Remeron] 30 mg PO BEDTIME 12/09/13 [History] Ibuprofen 400 mg PO ASDIRECTED PRN 01/28/17 [History] Propranolol [Inderal] 30 mg PO BID 09/08/17 [History] ALPRAZolam [Xanax] 0.25 mg PO BEDTIME 12/08/18 [History] ALPRAZolam [Xanax] 0.5 mg PO DAILY 12/08/18 [History] Sertraline HCl [Zoloft] 200 mg PO BEDTIME 12/08/18 [History] Past Medical History HEENT History: Reports: Hard of Hearing, Other (See Below) Other HEENT History: wears hearing aid Cardiovascular History: Reports: None Respiratory History: Reports: None Gastrointestinal History: Reports: Bowel Obstruction, Cholelithiasis, Other ( See Below) Other Gastrointestinal History: barium swallow studies Genitourinary History: Reports: None 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 History: Reports: Endometriosis Neurological History: Reports: Migraines Psychiatric History: Reports: Anxiety, Depression, PTSD Endocrine/Metabolic History: Reports: None Hematologic History: Reports: None Immunologic History: Reports: None Oncologic (Cancer) History: Reports: None Dermatologic History: Reports: None - Infectious Disease History Infectious Disease History: Reports: Chicken Pox, Measles, Mumps - Past Surgical History Head Surgeries/Procedures: Reports: None HEENT Surgical History: Reports: Tonsillectomy, Other (See Below) Other HEENT Surgeries/Procedures: prosthetic inner ear bone GI Surgical History: Reports: Appendectomy, Cholecystectomy, Colonoscopy Female Surgical History: Reports: Section, Hysterectomy, Salpingo- Oophorectomy Musculoskeletal Surgical History: Reports: Arthroscopic Procedure Social & Family History - Family History Family Medical History: Noncontributory - Tobacco Use Smoking Status *Q: Current Every Day Smoker Years of Tobacco use: 35 Packs/Tins Daily: 1 - Caffeine Use Caffeine Use: Reports: None - Recreational Drug Use Recreational Drug Use: No - Living Situation & Occupation Living situation: Reports: with Significant Other Occupation: Employed H&P Review of Systems - Review of Systems: Review Of Systems: See Below General: Reports: No Symptoms HEENT: Reports: No Symptoms Pulmonary: Reports: No Symptoms Cardiovascular: Reports: No Symptoms Gastrointestinal: Reports: No Symptoms, Abdominal Pain, Diarrhea, Decreased Appetite, Distension, Flatus, Nausea, Vomiting, Other (abdominal cramps) Genitourinary: Reports: No Symptoms Musculoskeletal: Reports: No Symptoms Skin: Reports: No Symptoms Psychiatric: Reports: No Symptoms Neurological: Reports: No Symptoms Hematologic/Lymphatic: Reports: No Symptoms Immunologic: Reports: No Symptoms Exam - Exam Exam: See Below - Vital Signs Vital Signs: Last Vital Signs Temp 98.0 F 12/08/18 08:52 Pulse 84 12/08/18 09:57 Resp 18 12/08/18 08:52 BP 124/82 12/08/18 08:52 Pulse Ox 94 L 12/08/18 09:57 Weight: 125 lb - Exam Quality Assessment: DVT Prophylaxis General: Alert, Oriented, Other (NGT in place) HEENT: PERRLA, Hearing Intact, Mucosa Moist & [place], Nares Patent, Normal Nasal Septum, Posterior Pharynx Clear, Conjunctiva Clear, EOMI, EACs Clear, TMs Clear Neck: Supple, Trachea Midline, 2 Lungs: Clear to Auscultation, Normal Respiratory Effort Cardiovascular: Regular Rate, Regular Rhythm GI/Abdominal Exam: Normal Bowel Sounds, Non-Tender, No Organomegaly, No Abnormal Bruit, No Mass, Pelvis Stable, Distended, Rigid, Abnormal Bowel Sounds (Female) Exam: Normal External Exam, Normal Speculum Exam, Normal Bimanual Exam Rectal (Female) Exam: Normal Exam, Normal Rectal Tone Back Exam: Normal Inspection, Full Range of Motion, NT Extremities: Normal Inspection, Normal Range of Motion, Non-Tender, No Pedal Edema, Normal Capillary Refill Skin: Warm, Dry, Intact Neurological: Cranial Nerves Intact, Reflexes Equal Bilateral Neuro Extensive - Mental Status: Alert, Oriented x3, Normal Mood/Affect, Normal Cognition Neuro Extensive - Motor, Sensory, Reflexes: CN II-XII Intact, Normal Gait, Normal Reflexes Psychiatric: Alert, Normal Affect, Normal Mood - Patient Data Lab Results Last 24 hrs: Laboratory Results - last 24 hr 12/08/18 12/08/18 12/08/18 Range/Units 07:42 07:42 07:42 WBC 14.8 H (5.0-10.0) 10^3/uL RBC 4.68 (4.2-5.4) 10^6/uL Hgb 14.5 D (12.0-16.0) g/dL Hct 43.6 (37.0-47.0) % MCV 93.2 D (80-100) fL MCH 31.0 (27.0-34.0) pg MCHC 33.3 (33.0-35.0) g/dL Plt Count 383 (150-450) 10^3/uL Neut % (Auto) 72.3 (42.2-75.2) % Lymph % (Auto) 17.0 L (20.5-50.1) % [place] % (Auto) 8.7 H (2-8) % Eos % (Auto) 1.8 (1.0-3.0) % Baso % (Auto) 0.2 (0.0-1.0) % Sodium 138 (135-145) mmol/L Potassium 3.8 (3.6-5.0) mmol/L Chloride 101 (101-111) mmol/L Carbon Dioxide 24.0 (21.0-31.0) mmol/L Anion Gap 16.8 BUN 11 (7-18) mg/dL Creatinine 0.7 (0.6-1.3) mg/dL Est Cr Clr Drug Dosing 82.24 mL/min Estimated GFR (MDRD) > 60 BUN/Creatinine Ratio 15.71 Glucose 118 H (74-105) mg/dL Lactic Acid 2.2 (0.5-2.2) mmol/L Calcium 9.8 (8.4-10.2) mg/dl Total Bilirubin 0.8 (0.2-1.0) mg/dL AST 68 H (10-42) IU/L ALT 50 (10-60) IU/L Alkaline Phosphatase 89 (42-121) IU/L Total Protein 7.4 (6.7-8.2) g/dl Albumin 4.4 (3.2-5.5) g/dl Globulin 3.0 Albumin/Globulin Ratio 1.47 Amylase 80 (28-100) U/L Lipase 26 (22-51) U/L Ethyl Alcohol mg/dL 12/08/18 Range/Units 07:42 WBC (5.0-10.0) 10^3/uL RBC (4.2-5.4) 10^6/uL Hgb (12.0-16.0) g/dL Hct (37.0-47.0) % MCV (80-100) fL MCH (27.0-34.0) pg MCHC (33.0-35.0) g/dL Plt Count (150-450) 10^3/uL Neut % (Auto) (42.2-75.2) % Lymph % (Auto) (20.5-50.1) % [place] % (Auto) (2-8) % Eos % (Auto) (1.0-3.0) % Baso % (Auto) (0.0-1.0) % Sodium (135-145) mmol/L Potassium (3.6-5.0) mmol/L Chloride (101-111) mmol/L Carbon Dioxide (21.0-31.0) mmol/L Anion Gap BUN (7-18) mg/dL Creatinine (0.6-1.3) mg/dL Est Cr Clr Drug Dosing mL/min Estimated GFR (MDRD) BUN/Creatinine Ratio Glucose (74-105) mg/dL Lactic Acid (0.5-2.2) mmol/L Calcium (8.4-10.2) mg/dl Total Bilirubin (0.2-1.0) mg/dL AST (10-42) IU/L ALT (10-60) IU/L Alkaline Phosphatase (42-121) IU/L Total Protein (6.7-8.2) g/dl Albumin (3.2-5.5) g/dl Globulin Albumin/Globulin Ratio Amylase (28-100) U/L Lipase (22-51) U/L Ethyl Alcohol < 5 mg/dL Result Diagrams: 12/08/18 07:42 12/08/18 07:42 Roland Results Last 24 hrs: Microbiology 12/08/18 07:50 Gastric Occult Blood - Final Gastric Fluid - Problem List (1) Small bowel obstruction SNOMED Code(s): 183386577 ICD Code: K56.69 - OTHER INTESTINAL OBSTRUCTION * DO NOT USE * Status: Acute Current Visit: No Problem List Initiated/Reviewed/Updated: Yes Orders Last 24hrs: Active Orders 24 hr Category Date Time Status Admission Diagnosis [ADT] Stat ADT 12/08/18 09:43 Ordered Admission Status [Patient Status] [ADT] Routine ADT 12/08/18 09:44 Active Antiembolic Devices [RC] .Routine Care 12/08/18 10:41 Ordered Bedrest Bathroom Privileges [RC] ASDIRECTED Care 12/08/18 10:40 Ordered Intake and Output [RC] QSHIFT Care 12/08/18 10:40 Ordered Notify Provider Vital Signs [RC] ASDIRECTED Care 12/08/18 10:40 Ordered Peripheral IV Care [RC] . DIRECTED Care 12/08/18 07:29 Active VTE/DVT Education [RC] PER UNIT ROUTINE Care 12/08/18 10:41 Ordered Vital Signs [RC] Q4H Care 12/08/18 10:40 Ordered Nothing per Oral Now Diet [DIET] Diet 12/08/18 Breakfast Ordered Abdomen Pelvis w Cont [CT] Stat Exams 12/08/18 08:17 Taken MAGNESIUM [CHEM] Routine Lab 12/08/18 10:44 Ordered PHOSPHORUS [CHEM] Routine Lab 12/08/18 10:44 Ordered UA RFX ROLAND AND CULT IF INDIC [URIN] Stat Lab 12/08/18 07:29 Ordered Heparin Sodium Med 12/08/18 21:00 Ordered 5,000 units SUBCUT Q12HR Lactated Ringers @ 100 MLS/HR(1,000ml) Med 12/08/18 10:45 Ordered Lactated Ringers [Ringers, Lactated] 1,000 ml IV ASDIRECTED Sodium Chloride 0.9% [Saline Flush] Med 12/08/18 07:28 Active 10 ml FLUSH ASDIRECTED PRN DVT/VTE Prophylaxis Reflex [OM.PC] Routine Oth 12/08/18 10:40 Ordered NG [Nasogastric Orogastric Tube Insertion] [OM.PC] Oth 12/08/18 08:50 Ordered Routine Peripheral IV Insertion Adult [OM.PC] Stat Oth 12/08/18 07:28 Ordered Resuscitation Status Routine Resus Stat 12/08/18 10:40 Ordered Medication Orders Heparin Sodium (Porcine) (Heparin Sodium) 5,000 units SUBCUT Q12HR [place] Lactated Ringer's (Ringers, Lactated) 1,000 mls @ 100 mls/hr IV ASDIRECTED [place] Sodium Chloride (Saline Flush) 10 ml FLUSH ASDIRECTED PRN PRN Reason: Keep Vein Open Last Admin: 12/08/18 07:48 Dose: 10 ml Assessment/Plan Comment:: #Partial small Bowel obstruction -Patient presented with abdominal cramping, n/v -CT abdomen and pelvis showed high grade partial small bowel obstruction with transition point in the posterior right lower pelvis at the site of postsurgical change associated with long segment ileal wall thickening -Admit to medical floor -Monitor vitals -Continue with NGT to LIWS -Serial abdominal exams -IV Cipro -Zofran prn for n/v -Fentanyl for pain control -Monitor and correct electrolytes as needed -Will transfer to [facility] if no improvement and when roads are opened #Leukocytosis due to above -Monitor cbc #Anxiety/Panic attack/PTSD -Continue home medications #Full code
[2018-12-08] MEDS ORDERED: DIAZEPAM 15 MG PO PRN (11:13)
[2018-12-08] MEDS: Lactated Ringers 1,000 ML IV SCH ×2 (11:21→21:15)
[2018-12-08] MEDS: fentaNYL 100 MCG/2 ML SDV IVPUSH PRN ×5 (12:06→21:41)
[2018-12-08] MEDS ORDERED: ALPRAZolam 0.5 MG Tab PO ONE (12:45)
[2018-12-08] MEDS: Diazepam 5 MG Tab PO SCH ×2 (13:47→21:17)
[2018-12-08] MEDS ORDERED: ALPRAZolam 0.5 MG Tab PO SCH (21:00)
[2018-12-08] MEDS: Ciprofloxacin in D5W 400 MG in Premix Bag 1 BAG IV SCH ×2 (21:15)
[2018-12-08] MEDS: Mirtazapine 15 MG Tab PO SCH (21:16)
[2018-12-08] MEDS: Propranolol 20 MG Tab PO SCH (21:16)
[2018-12-08] MEDS: Sertraline 50 MG Tab PO SCH (21:17)
[2018-12-08] MEDS: Heparin Sodium 5,000 Units/ML Vial SUBCUT SCH (21:18)
[2018-12-09] MEDS: fentaNYL 100 MCG/2 ML SDV IVPUSH PRN ×5 (00:04→08:31)
[2018-12-09] MEDS: Ondansetron 4 MG/2 ML SDV IV PRN (00:07)
[2018-12-09 07:53] LABS: ANION GAP 15.1; CHLORIDE,CL 101 mmol/L (101-111); SODIUM,NA 139 mmol/L (135-145)
[2018-12-09] MEDS: Sodium Chloride 0.9% 10 ML Syringe FLUSH PRN (08:34)
[2018-12-09] MEDS: Lactated Ringers 1,000 ML IV SCH ×2 (08:41→19:50)
[2018-12-09] MEDS ORDERED: ALPRAZolam 0.5 MG Tab PO SCH (09:00)
[2018-12-09] MEDS: Ciprofloxacin in D5W 400 MG in Premix Bag 1 BAG IV SCH ×4 (09:17→21:07)
[2018-12-09] MEDS: Diazepam 5 MG Tab PO SCH ×2 (09:23→21:06)
[2018-12-09] MEDS: Propranolol 20 MG Tab PO SCH ×2 (09:24→21:03)
[2018-12-09] MEDS: ALPRAZolam 0.5 MG Tab PO SCH ×2 (09:25→21:06)
[2018-12-09] MEDS: Heparin Sodium 5,000 Units/ML Vial SUBCUT SCH ×2 (09:26→21:01)
[2018-12-09] MEDS: HYDROmorphone 0.5 MG/0.5 ML Syringe IVPUSH PRN ×3 (11:31→18:44)
--- NOTE | 2018-12-09 12:11 | PCM.PN ---
- General Info Date of Service: 12/09/18 Admission Dx/Problem (Free Text): Admission Diagnosis/Problem Admission Diagnosis/Problem Small bowel obstruction Subjective Update: Sally is 53 y/o F with PMH of previous SBO, multiple abdominal surgeries ( hysterectomy, appendectomy, and cholecystectomy). She presented to the ED via [facility] with severe abdominal pain and cramping associated with nausea, vomiting. She was found to have partial SBO. CT abdomen and pelvis showed high grade partial small bowel obstruction with transition point in the posterior right lower pelvis at the site of postsurgical change associated with long segment ileal wall thickening. NGT was placed. Patient was admitted for further management. Today patient was sen and examined. No acute event overnight. Output from NGT was about 600 cc since admission. Patient had 2 bowel movement this morning. Stool was watery. She is passing gas. She notes nausea has improved. Denies abdominal pain, distension. She denies fever or chills. Functional Status: Reports: Pain Controlled - Review of Systems General: Reports: No Symptoms HEENT: Reports: No Symptoms Pulmonary: Reports: No Symptoms Cardiovascular: Reports: No Symptoms Gastrointestinal: Reports: No Symptoms Genitourinary: Reports: No Symptoms Musculoskeletal: Reports: No Symptoms Skin: Reports: No Symptoms Neurological: Reports: No Symptoms Psychiatric: Reports: No Symptoms - Patient Data Vitals - Most Recent: Last Vital Signs Temp 97.4 F 12/09/18 11:45 Pulse 79 12/09/18 11:45 Resp 18 12/09/18 11:45 BP 115/78 12/09/18 11:45 Pulse Ox 93 L 12/09/18 11:45 Weight - Most Recent: 125 lb I&O - Last 24 Hours: Intake & Output 12/08/18 12/09/18 12/09/18 22:59 06:59 14:59 Intake Total 1983 Output Total 400 400 Balance -400 -400 1983 Lab Results Last 24 Hours: Laboratory Results - last 24 hr 12/09/18 12/09/18 12/09/18 Range/Units 07:10 07:10 07:10 WBC 6.2 (5.0-10.0) 10^3/uL RBC 4.76 (4.2-5.4) 10^6/uL Hgb 14.6 (12.0-16.0) g/dL Hct 45.2 (37.0-47.0) % MCV 95.0 (80-100) fL MCH 30.7 (27.0-34.0) pg MCHC 32.3 L (33.0-35.0) g/dL Plt Count 289 D (150-450) 10^3/uL Sodium 139 (135-145) mmol/L Potassium 4.1 (3.6-5.0) mmol/L Chloride 101 (101-111) mmol/L Carbon Dioxide 27.0 (21.0-31.0) mmol/L Anion Gap 15.1 BUN 5 L (7-18) mg/dL Creatinine 0.7 (0.6-1.3) mg/dL Est Cr Clr Drug Dosing 82.24 mL/min Estimated GFR (MDRD) > 60 Glucose 89 (74-105) mg/dL Lactic Acid 0.9 (0.5-2.2) mmol/L Calcium 9.3 (8.4-10.2) mg/dl Urine Color (YELLOW) Urine Appearance (CLEAR) Urine pH (5.0-9.0) Ur Specific [place] (1.005-1.030) Urine Protein (NEGATIVE) Urine Glucose (UA) (NEGATIVE) Urine Ketones (NEGATIVE) Urine Occult Blood (NEGATIVE) Urine Nitrite (NEGATIVE) Urine Bilirubin (NEGATIVE) Urine Urobilinogen (0.2-1.0) mg/dL Ur Leukocyte Esterase (NEGATIVE) Urine RBC /HPF Urine WBC (0-5/HPF) /HPF Ur Epithelial Cells (NOT SEEN) /HPF Calcium Oxalate Crystal (NOT SEEN) /HPF Amorphous Sediment (NOT SEEN) /HPF Urine Bacteria (0-FEW/HPF) /HPF Hyaline Casts (NOT SEEN) /LPF Fine Granular Casts (NOT SEEN) /LPF Urine Mucus (NOT SEEN) /LPF 12/09/18 Range/Units 07:46 WBC (5.0-10.0) 10^3/uL RBC (4.2-5.4) 10^6/uL Hgb (12.0-16.0) g/dL Hct (37.0-47.0) % MCV (80-100) fL MCH (27.0-34.0) pg MCHC (33.0-35.0) g/dL Plt Count (150-450) 10^3/uL Sodium (135-145) mmol/L Potassium (3.6-5.0) mmol/L Chloride (101-111) mmol/L Carbon Dioxide (21.0-31.0) mmol/L Anion Gap BUN (7-18) mg/dL Creatinine (0.6-1.3) mg/dL Est Cr Clr Drug Dosing mL/min Estimated GFR (MDRD) Glucose (74-105) mg/dL Lactic Acid (0.5-2.2) mmol/L Calcium (8.4-10.2) mg/dl Urine Color Yellow (YELLOW) Urine Appearance Cloudy (CLEAR) Urine pH 5.5 (5.0-9.0) Ur Specific [place] >= 1.030 (1.005-1.030) Urine Protein 30 H (NEGATIVE) Urine Glucose (UA) Negative (NEGATIVE) Urine Ketones Negative (NEGATIVE) Urine Occult Blood Negative (NEGATIVE) Urine Nitrite Negative (NEGATIVE) Urine Bilirubin Moderate H (NEGATIVE) Urine Urobilinogen 0.2 (0.2-1.0) mg/dL Ur Leukocyte Esterase Trace H (NEGATIVE) Urine RBC 0-5 /HPF Urine WBC 40-50 H (0-5/HPF) /HPF Ur Epithelial Cells Few (NOT SEEN) /HPF Calcium Oxalate Crystal Moderate H (NOT SEEN) /HPF Amorphous Sediment Few (NOT SEEN) /HPF Urine Bacteria Moderate H (0-FEW/HPF) /HPF Hyaline Casts Few H (NOT SEEN) /LPF Fine Granular Casts Moderate H (NOT SEEN) /LPF Urine Mucus Moderate H (NOT SEEN) /LPF Roland Results Last 24 Hours: Microbiology 12/08/18 07:50 Gastric Occult Blood - Final Gastric Fluid Med Orders - Current: Current Medications Alprazolam (Xanax) 0.5 mg PO BEDTIME [facility] Stop: 12/14/18 21:01 Alprazolam (Xanax) 0.5 mg PO BID [place] Stop: 12/11/18 21:01 Last Admin: 12/09/18 09:25 Dose: 0.5 mg Alprazolam (Xanax) 1 mg PO DAILY [place] Stop: 12/14/18 09:01 Alprazolam (Xanax) 1 mg PO BID [place] Diazepam (Valium.) 5 mg PO BID [place]; Taper Stop: 12/15/18 05:59 Last Admin: 12/09/18 09:23 Dose: 5 mg Heparin Sodium (Porcine) (Heparin Sodium) 5,000 units SUBCUT Q12HR [place] Last Admin: 12/09/18 09:26 Dose: 5,000 units Hydromorphone HCl (Dilaudid) 0.5 mg IVPUSH Q2H PRN PRN Reason: Pain Last Admin: 12/09/18 11:31 Dose: 0.5 mg Lactated Ringer's (Ringers, Lactated) 1,000 mls @ 100 mls/hr IV ASDIRECTED [place] Last Admin: 12/09/18 08:41 Dose: 100 mls/hr Ciprofloxacin/Dextrose 400 mg/ (Premix) 200 mls @ 200 mls/hr IV Q12HR [place] Last Admin: 12/09/18 09:17 Dose: 200 mls/hr Mirtazapine (Remeron) 30 mg PO BEDTIME [facility] Last Admin: 12/08/18 21:16 Dose: 30 mg Ondansetron HCl (Zofran) 4 mg IV Q8HR PRN PRN Reason: Vomiting Last Admin: 12/09/18 00:07 Dose: 4 mg Propranolol HCl (Inderal) 30 mg PO BID [facility] Last Admin: 12/09/18 09:24 Dose: 30 mg Sertraline HCl (Zoloft) 200 mg PO BEDTIME [facility] Last Admin: 12/08/18 21:17 Dose: 200 mg Sodium Chloride (Saline Flush) 10 ml FLUSH ASDIRECTED PRN PRN Reason: Keep Vein Open Last Admin: 12/09/18 08:34 Dose: 10 ml Discontinued Medications Alprazolam (Xanax) 0.5 mg PO DAILY [facility] Alprazolam (Xanax) 0.5 mg PO ONETIME ONE Stop: 12/08/18 12:46 Last Admin: 12/08/18 13:47 Dose: 0.5 mg Alprazolam (Xanax) 0.25 mg PO BEDTIME [place] Stop: 12/08/18 21:01 Last Admin: 12/08/18 21:17 Dose: 0.25 mg Fentanyl (Sublimaze) 50 mcg IVPUSH Q2H PRN PRN Reason: Abdominal Pain Last Admin: 12/09/18 08:31 Dose: 50 mcg Sodium Chloride (Normal Saline) 1,000 mls @ 999 mls/hr IV .BOLUS ONE Stop: 12/08/18 08:29 Last Admin: 12/08/18 07:47 Dose: 999 mls/hr Iopamidol (Isovue-300 (61%)) 75 ml IVPUSH ONETIME ONE Stop: 12/08/18 08:18 Last Admin: 12/08/18 08:55 Dose: 75 ml Midazolam HCl (Versed 1 Mg/Ml) 2 mg IVPUSH ONETIME ONE Stop: 12/08/18 08:51 Last Admin: 12/08/18 09:04 Dose: 2 mg Morphine Sulfate (Morphine) 4 mg IVPUSH ONETIME ONE Stop: 12/08/18 07:47 Last Admin: 12/08/18 07:56 Dose: 4 mg Morphine Sulfate (Morphine) 4 mg IVPUSH ONETIME ONE Stop: 12/08/18 09:46 Last Admin: 12/08/18 09:50 Dose: 4 mg Non-Formulary Medication (Diazepam [Valium]) 15 mg PO TID PRN PRN Reason: Anxiety Ondansetron HCl (Zofran) 4 mg IV ONETIME ONE Stop: 12/08/18 07:30 Last Admin: 12/08/18 07:49 Dose: 4 mg Ondansetron HCl (Zofran) 4 mg IV ONETIME ONE Stop: 12/08/18 08:55 Last Admin: 12/08/18 09:01 Dose: 4 mg - Exam Quality Assessment: DVT Prophylaxis (NGT in place. ) General: Alert, Oriented HEENT: Pupils Equal, Pupils Reactive, EOMI, Mucous Membr. Moist/[place] Neck: Supple Lungs: Clear to Auscultation, Normal Respiratory Effort Cardiovascular: Regular Rate, Regular Rhythm GI/Abdominal Exam: Normal Bowel Sounds, Soft, Non-Tender, No Organomegaly, No Distention, No Abnormal Bruit, No Mass, Pelvis Stable (Female) Exam: Normal External Exam, Normal Speculum Exam, Normal Bimanual Exam Back Exam: Normal Inspection, Full Range of Motion Extremities: Normal Inspection, Normal Range of Motion, Non-Tender, No Pedal Edema, Normal Capillary Refill Skin: Warm, Dry, Intact Wound/Incisions: Healing Well Neurological: No New Focal Deficit Psy/Mental Status: Alert, Normal Affect, Normal Mood - Problem List & Annotations (1) Small bowel obstruction SNOMED Code(s): 300538295 Code(s): K56.69 - OTHER INTESTINAL OBSTRUCTION * DO NOT USE * Status: Acute Current Visit: No - Problem List Review Problem List Initiated/Reviewed/Updated: Yes - My Orders Last 24 Hours: My Active Orders 12/08/18 11:13 Ondansetron [Zofran] 4 mg IV Q8HR PRN 12/08/18 14:00 diazePAM [Valium] 5 mg PO BID 12/08/18 21:00 Ciprofloxacin in D5W [Cipro in D5W 400 MG/200 ML] 400 mg Premix Bag 1 bag IV Q12HR Heparin Sodium 5,000 units SUBCUT Q12HR Mirtazapine [Remeron] 30 mg PO BEDTIME Propranolol [Inderal] 30 mg PO BID Sertraline [Zoloft] 200 mg PO BEDTIME 12/09/18 09:00 ALPRAZolam [Xanax] 0.5 mg PO BID 12/09/18 11:09 HYDROmorphone [Dilaudid] 0.5 mg IVPUSH Q2H PRN 12/09/18 11:10 Communication Order [RC] ROUTINE 12/12/18 09:00 ALPRAZolam [Xanax] 1 mg PO DAILY 12/12/18 21:00 ALPRAZolam [Xanax] 0.5 mg PO BEDTIME 12/15/18 09:00 ALPRAZolam [Xanax] 1 mg PO BID - Plan Plan:: #Partial small Bowel obstruction -appears improving -Do trial of NGT clamp -D/c NGT if patient has no n/v and do start clear liquid diet to be advanced as tolerated -Continue serial abdominal exams -IV Cipro -Zofran prn for n/v -Dilaudid for pain control -Monitor and correct electrolytes as needed #Leukocytosis due to above -Resolved #Anxiety/Panic attack/PTSD -Continue home medications #Full code
[2018-12-09] MEDS: Sertraline 50 MG Tab PO SCH (21:04)
[2018-12-09] MEDS: Mirtazapine 15 MG Tab PO SCH (21:06)
[2018-12-10] MEDS: HYDROmorphone 0.5 MG/0.5 ML Syringe IVPUSH PRN ×3 (00:11→08:58)
[2018-12-10] MEDS: Lactated Ringers 1,000 ML IV SCH (06:48)
[2018-12-10] MEDS: Ondansetron 4 MG/2 ML SDV IV PRN (06:54)
[2018-12-10] MEDS: Ciprofloxacin in D5W 400 MG in Premix Bag 1 BAG IV SCH ×2 (08:55)
[2018-12-10] MEDS: Propranolol 20 MG Tab PO SCH (08:56)
[2018-12-10] MEDS: ALPRAZolam 0.5 MG Tab PO SCH (08:56)
[2018-12-10] MEDS: Heparin Sodium 5,000 Units/ML Vial SUBCUT SCH (08:57)
[2018-12-10] MEDS: Diazepam 5 MG Tab PO SCH (08:57)
--- NOTE | 2018-12-10 10:00 | PCM.DCSUM1 ---
Discharge Summary - Hospital Course Free Text/Narrative:: Sally is 53 y/o F with PMH of previous SBO, multiple abdominal surgeries ( hysterectomy, appendectomy, and cholecystectomy). She presented to the ED via [facility] with severe abdominal pain and cramping associated with nausea, vomiting. She was found to have partial SBO. CT abdomen and pelvis showed high grade partial small bowel obstruction with transition point in the posterior right lower pelvis at the site of postsurgical change associated with long segment ileal wall thickening. NGT was placed. Patient was admitted for further management. She was managed conservatively with improvement. SBO resolved. She is having bowel movements. N/V has resolved. Patient is being discharged home in a stable condition. She will follow up with PCP in 5 days. Diagnosis: Stroke: No - Discharge Data Discharge Date: 12/10/18 Discharge Disposition: Home, Self-Care 01 Condition: Good - Referral to Home Health Primary Care Physician: Sarah Jeffrey MD - Discharge Diagnosis/Problem(s) (1) Small bowel obstruction SNOMED Code(s): 238888696 ICD Code: K56.69 - OTHER INTESTINAL OBSTRUCTION * DO NOT USE * Status: Acute Current Visit: No - Patient Instructions Diet: Heart Healthy Diet Activity: As Tolerated Driving: May Drive Today Showering/Bathing: May Shower Notify Provider of: Fever, Increased Pain, Swelling and Redness, Nausea and/or Vomiting - Discharge Plan *PRESCRIPTION DRUG MONITORING PROGRAM REVIEWED*: No *COPY OF PRESCRIPTION DRUG MONITORING REPORT IN PATIENT ANGELIA: No Prescriptions/Med Rec: Ondansetron HCl [Zofran] 4 mg PO Q8H PRN #30 tablet PRN Reason: Nausea Home Medications: Home Meds Diazepam [Valium] 15 mg PO TID 12/09/13 [History] Mirtazapine [Remeron] 30 mg PO BEDTIME 12/09/13 [History] Ibuprofen 400 mg PO ASDIRECTED PRN 01/28/17 [History] Propranolol [Inderal] 30 mg PO BID 09/08/17 [History] ALPRAZolam [Xanax] 0.25 mg PO BEDTIME 12/08/18 [History] ALPRAZolam [Xanax] 0.5 mg PO DAILY 12/08/18 [History] Sertraline HCl [Zoloft] 200 mg PO BEDTIME 12/08/18 [History] Ondansetron HCl [Zofran] 4 mg PO Q8H PRN #30 tablet 12/10/18 [Rx] Oxygen Therapy Mode: Room Air Forms: ED Department Discharge Referrals: PCP,None [Ordering Only Provider] - - Discharge Summary/Plan Comment DC Time >30 min.: Yes - General Info Date of Service: 12/10/18 Admission Dx/Problem (Free Text: Admission Diagnosis/Problem Admission Diagnosis/Problem Small bowel obstruction Subjective Update: Sally is 53 y/o F with PMH of previous SBO, multiple abdominal surgeries ( hysterectomy, appendectomy, and cholecystectomy). She presented to the ED via [facility] with severe abdominal pain and cramping associated with nausea, vomiting. She was found to have partial SBO. CT abdomen and pelvis showed high grade partial small bowel obstruction with transition point in the posterior right lower pelvis at the site of postsurgical change associated with long segment ileal wall thickening. NGT was placed. Patient was admitted for further management. Symptoms resolved with conservative management. Functional Status: Reports: Pain Controlled - Review of Systems General: Reports: No Symptoms HEENT: Reports: No Symptoms Pulmonary: Reports: No Symptoms Cardiovascular: Reports: No Symptoms Gastrointestinal: Reports: No Symptoms Genitourinary: Reports: No Symptoms Musculoskeletal: Reports: No Symptoms Skin: Reports: No Symptoms Neurological: Reports: No Symptoms Psychiatric: Reports: No Symptoms - Patient Data Vitals - Most Recent: Last Vital Signs Temp 97.8 F 12/10/18 07:52 Pulse 70 12/10/18 07:52 Resp 20 12/10/18 07:52 BP 106/74 12/10/18 07:52 Pulse Ox 96 12/10/18 07:52 Weight - Most Recent: 125 lb I&O - Last 24 hours: Intake & Output 12/09/18 12/10/18 12/10/18 22:59 06:59 14:59 Intake Total 2197 600 988 Output Total 300 1700 Balance 1897 -1100 988 Med Orders - Current: Current Medications Alprazolam (Xanax) 0.5 mg PO BEDTIME [facility] Stop: 12/14/18 21:01 Alprazolam (Xanax) 0.5 mg PO BID [facility] Stop: 12/11/18 21:01 Last Admin: 12/10/18 08:56 Dose: 0.5 mg Alprazolam (Xanax) 1 mg PO DAILY [facility] Stop: 12/14/18 09:01 Alprazolam (Xanax) 1 mg PO BID [facility] Diazepam (Valium.) 5 mg PO BID [facility]; Taper Stop: 12/15/18 05:59 Last Admin: 12/10/18 08:57 Dose: 5 mg Heparin Sodium (Porcine) (Heparin Sodium) 5,000 units SUBCUT Q12HR [facility] Last Admin: 12/10/18 08:57 Dose: 5,000 units Hydromorphone HCl (Dilaudid) 0.5 mg IVPUSH Q2H PRN PRN Reason: Pain Last Admin: 12/10/18 08:58 Dose: 0.5 mg Lactated Ringer's (Ringers, Lactated) 1,000 mls @ 100 mls/hr IV ASDIRECTED [facility] Last Admin: 12/10/18 06:48 Dose: 100 mls/hr Ciprofloxacin/Dextrose 400 mg/ (Premix) 200 mls @ 200 mls/hr IV Q12HR [facility] Last Admin: 12/10/18 08:55 Dose: 200 mls/hr Mirtazapine (Remeron) 30 mg PO BEDTIME [facility] Last Admin: 12/09/18 21:06 Dose: 30 mg Ondansetron HCl (Zofran) 4 mg IV Q8HR PRN PRN Reason: Vomiting Last Admin: 12/10/18 06:54 Dose: 4 mg Propranolol HCl (Inderal) 30 mg PO BID [facility] Last Admin: 12/10/18 08:56 Dose: 30 mg Sertraline HCl (Zoloft) 200 mg PO BEDTIME [facility] Last Admin: 12/09/18 21:04 Dose: 200 mg Sodium Chloride (Saline Flush) 10 ml FLUSH ASDIRECTED PRN PRN Reason: Keep Vein Open Last Admin: 12/09/18 08:34 Dose: 10 ml Discontinued Medications Alprazolam (Xanax) 0.5 mg PO DAILY [facility] Alprazolam (Xanax) 0.5 mg PO ONETIME ONE Stop: 12/08/18 12:46 Last Admin: 12/08/18 13:47 Dose: 0.5 mg Alprazolam (Xanax) 0.25 mg PO BEDTIME [place] Stop: 12/08/18 21:01 Last Admin: 12/08/18 21:17 Dose: 0.25 mg Fentanyl (Sublimaze) 50 mcg IVPUSH Q2H PRN PRN Reason: Abdominal Pain Last Admin: 12/09/18 08:31 Dose: 50 mcg Sodium Chloride (Normal Saline) 1,000 mls @ 999 mls/hr IV .BOLUS ONE Stop: 12/08/18 08:29 Last Admin: 12/08/18 07:47 Dose: 999 mls/hr Iopamidol (Isovue-300 (61%)) 75 ml IVPUSH ONETIME ONE Stop: 12/08/18 08:18 Last Admin: 12/08/18 08:55 Dose: 75 ml Midazolam HCl (Versed 1 Mg/Ml) 2 mg IVPUSH ONETIME ONE Stop: 12/08/18 08:51 Last Admin: 12/08/18 09:04 Dose: 2 mg Morphine Sulfate (Morphine) 4 mg IVPUSH ONETIME ONE Stop: 12/08/18 07:47 Last Admin: 12/08/18 07:56 Dose: 4 mg Morphine Sulfate (Morphine) 4 mg IVPUSH ONETIME ONE Stop: 12/08/18 09:46 Last Admin: 12/08/18 09:50 Dose: 4 mg Non-Formulary Medication (Diazepam [Valium]) 15 mg PO TID PRN PRN Reason: Anxiety Ondansetron HCl (Zofran) 4 mg IV ONETIME ONE Stop: 12/08/18 07:30 Last Admin: 12/08/18 07:49 Dose: 4 mg Ondansetron HCl (Zofran) 4 mg IV ONETIME ONE Stop: 12/08/18 08:55 Last Admin: 12/08/18 09:01 Dose: 4 mg - Exam General: Reports: Alert, Oriented HEENT: Reports: Pupils Equal, Pupils Reactive, EOMI, Mucous Membr. Moist/[place]: Reports: Supple Lungs: Reports: Clear to Auscultation, Normal Respiratory Effort Cardiovascular: Reports: Regular Rate, Regular Rhythm GI/Abdominal Exam: Normal Bowel Sounds, Soft, Non-Tender, No Organomegaly, No Distention, No Abnormal Bruit, No Mass, Pelvis Stable (Female) Exam: Normal External Exam, Normal Speculum Exam, Normal Bimanual Exam Rectal (Female) Exam: Normal Exam, Normal Rectal Tone Back Exam: Reports: Normal Inspection, Full Range of Motion Extremities: Normal Inspection, Normal Range of Motion, Non-Tender, No Pedal Edema, Normal Capillary Refill Skin: Reports: Warm, Dry, Intact Wound/Incisions: Reports: Healing Well Neurological: Reports: No New Focal Deficit Psy/Mental Status: Reports: Alert, Normal Affect, Normal Mood
[2018-12-10 11:39] VITALS: BP 106/73; PULSE 71
[2018-12-12] MEDS ORDERED: ALPRAZolam 0.5 MG Tab PO SCH ×2 (09:00→21:00)
[2018-12-15] MEDS ORDERED: ALPRAZolam 0.5 MG Tab PO SCH (09:00)
== END 2018-12-10 12:05 | disposition home or self-care (01) | DRG 390 ==
LOC: DL.ED 07:20 → DL.MS 09:44
PROVIDERS: ADMIT Student in an Organized Health Care Education/Training Program; ATTEND Student in an Organized Health Care Education/Training Program
DX: K56.600 Partial intestinal obstruction, unspecified as to cause (principal); F41.0 Panic disorder [episodic paroxysmal anxiety]; F43.10 Post-traumatic stress disorder, unspecified; F32.9 Major depressive disorder, single episode, unspecified; F17.210 Nicotine dependence, cigarettes, uncomplicated; Z90.49 Acquired absence of other specified parts of digestive tract; Z91.010 Allergy to peanuts; Z91.012 Allergy to eggs; Z88.2 Allergy status to sulfonamides; Z88.1 Allergy status to other antibiotic agents; Z91.011 Allergy to milk products; Z79.899 Other long term (current) drug therapy; Z90.710 Acquired absence of both cervix and uterus
CPT/HCPCS: 36415; 74177; 80048; 80053; 81001; 82150; 82271; 83605; 83690; 83735; 84100; 85025; 85027; 87086; 96365; 96366; 96375; 96376; 99285-25; A9270-GY; G0480; J0744; J1170; J1644; J2250; J2270; J2405; J3010; J7030; J7120; Q9967

== ENCOUNTER 2021-02-21 18:40 | Emergency (ER) | payer BC, MEDICAID ==
[2021-02-21] MEDS ORDERED: Ondansetron 4 MG/2 ML SDV IVPUSH ONE (19:56)
[2021-02-21] MEDS ORDERED: Sodium Chloride 0.9% 1,000 ML IV ONE (19:56)
[2021-02-21] MEDS ORDERED: fentaNYL 100 MCG/2 ML SDV IVPUSH ONE (20:37)
[2021-02-21 20:40] LABS: ANION GAP 16.4 mEq/L (7-13); CHLORIDE,CL 99 mmol/L (98-107); SODIUM,NA 136 mmol/L (136-145)
[2021-02-21] MEDS ORDERED: Iopamidol 612 MG/ML 100 ML Bottle IVPUSH ONE (20:48)
[2021-02-21 22:30] LABS: AMPHETAMINES,URINE NEGATIVE (NEGATIVE); BARBITURATES,URINE NEGATIVE (NEGATIVE); BENZODIAZEPINE,URINE POSITIVE (NEGATIVE); MDMA (ECSTASY), URINE NEGATIVE (NEGATIVE); METHADONE,URINE NEGATIVE (NEGATIVE); METHAMPHETAMINES,URINE NEGATIVE (NEGATIVE); OPIATES,URINE NEGATIVE (NEGATIVE); OXYCODONE,URINE NEGATIVE (NEGATIVE); PHENCYCLIDINE,URINE NEGATIVE (NEGATIVE); TCA,URINE NEGATIVE (NEGATIVE)
[2021-02-21] MEDS ORDERED: Lidocaine 2% Jelly 10 ML Urojet MUCMEM ONE (22:41)
[2021-02-21 23:53] VITALS: BP 128/78; PULSE 82
== END 2021-02-22 00:22 | disposition home or self-care (01) ==
LOC: DL.ED 18:40
DX: K59.00 Constipation, unspecified (principal); Z72.0 Tobacco use; Z91.011 Allergy to milk products; Z91.012 Allergy to eggs; Z91.010 Allergy to peanuts; Z88.2 Allergy status to sulfonamides; Z88.1 Allergy status to other antibiotic agents
CPT/HCPCS: 36415; 74177; 80053; 80305; 81001; 82150; 83605; 83690; 85025; 87040; 96374; 96375; 99284; J2405; J3010; J7030; Q9967; 99285

== ENCOUNTER 2022-02-24 09:32 | Emergency (ER) | payer MEDICAID ==
[2022-02-24 09:22] VITALS: BP 143/97; PULSE 100
[~2022-02-24 09:32] MED LIST: HYDROmorphone 0.5 MG/0.5 ML Syringe IVPUSH ONE; Sodium Chloride 0.9% 10 ML Syringe FLUSH PRN
[2022-02-24] MEDS ORDERED: Ciprofloxacin 0.3% Ophth Soln 5 ML Bottle ONE (09:45)
[2022-02-24 09:48] LABS: ANION GAP 10.6 mEq/L (7-13); CHLORIDE,CL 104 mmol/L (98-107); ESTIMATED GFR 103 mL/min (>=60); SODIUM,NA 139 mmol/L (136-145)
[2022-02-24] MEDS ORDERED: HYDROmorphone 0.5 MG/0.5 ML Syringe IVPUSH ONE (09:50)
[2022-02-24] MEDS ORDERED: Iopamidol 612 MG/ML 100 ML Bottle IVPUSH ONE (09:52)
[2022-02-24 10:12] LABS: RESPIRATORY SYNCYTIAL VIR NAA NEGATIVE (NEGATIVE)
[2022-02-24 10:15] LABS: CORONAVIRUS COVID-19 NAA POSITIVE (NEGATIVE)
[2022-02-24] MEDS ORDERED: cefTRIAXone 2 GM Vial IVPUSH ONE (11:15)
== END 2022-02-24 11:42 | disposition home or self-care (01) ==
LOC: DL.ED 09:32
DX: U07.1 COVID-19 (principal); N12 Tubulo-interstitial nephritis, not specified as acute or chronic; N13.9 Obstructive and reflux uropathy, unspecified; I10 Essential (primary) hypertension; E78.00 Pure hypercholesterolemia, unspecified; F17.210 Nicotine dependence, cigarettes, uncomplicated; Z91.011 Allergy to milk products; Z91.010 Allergy to peanuts; Z88.2 Allergy status to sulfonamides; Z91.012 Allergy to eggs; Z88.1 Allergy status to other antibiotic agents; Z79.899 Other long term (current) drug therapy
CPT/HCPCS: 0241U; 36415; 74178; 80053; 81001; 83605; 84145; 85025; 86140; 87040; 87086; 87088; 87186; 96374; 96375; 99284; A9270; J0696; J1170; J3490; Q9967

== ENCOUNTER 2022-05-02 14:22 | Emergency (ER) | payer OTHER, MEDICAID ==
[2022-05-02 14:28] VITALS: BP 143/96; PULSE 78
[2022-05-02] MEDS ORDERED: Sodium Chloride 0.9% 10 ML Syringe FLUSH PRN (14:44)
[2022-05-02] MEDS ORDERED: fentaNYL 100 MCG/2 ML SDV IVPUSH ONE ×2 (14:45→15:31)
[2022-05-02] MEDS ORDERED: Ondansetron 4 MG/2 ML SDV IV ONE (14:46)
== END 2022-05-02 15:57 ==
LOC: DL.ED 14:22
DX: S72.142A Displaced intertrochanteric fracture of left femur, initial encounter for closed fracture (principal); Z72.0 Tobacco use; Z98.890 Other specified postprocedural states; Z91.011 Allergy to milk products; Z91.012 Allergy to eggs; Z91.010 Allergy to peanuts; Z79.899 Other long term (current) drug therapy; W00.0XXA Fall on same level due to ice and snow, initial encounter
CPT/HCPCS: 51702; 72192; 96374; 96375; 96376; 99285; J2405; J3010; J3490; 99283

== ENCOUNTER 2023-11-24 22:43 | Emergency (ER) | payer SELFPAY ==
[2023-11-24 22:59] VITALS: BP 147/101; PULSE 88
[2023-11-24] MEDS ORDERED: Sodium Chloride 0.9% 10 ML Syringe FLUSH PRN (23:27)
[2023-11-24 23:50] LABS: BASOPHILS PERCENT AUTO 0.2 % (0.0-1.0); EOSINOPHILS PERCENT AUTO 1.7 % (1.0-3.0); HEMATOCRIT 43.8 % (37.0-47.0); HEMOGLOBIN 14.4 g/dL (12.0-16.0); LYMPHOCYTES PERCENT AUTO 6.9 % (20.5-50.1); MEAN CORPUSCULAR HEMOGLOBIN 31.9 pg (27.0-34.0); MEAN CORPUSCULAR HGB CONC 32.9 g/dL (33.0-35.0); MEAN CORPUSCULAR VOLUME 97.1 fL (80-100); MONOCYTES PERCENT AUTO 10.3 % (2-8); NEUTROPHILS PERCENT AUTO 80.9 % (42.2-75.2); PLATELET COUNT,PLT 239 10^3/uL (150-450); RED BLOOD CELL COUNT 4.51 10^6/uL (4.2-5.4); WHITE BLOOD CELL COUNT,WBC 10.1 10^3/uL (5.0-10.0)
[2023-11-25 00:11] LABS: A/G RATIO 1.1; ANION GAP 10.9 mEq/L (7-13); BILIRUBIN TOTAL 0.5 mg/dL (0.2-1.0); BUN/CREATININE RATIO 16.4 (No establ ref range); CALCIUM 9.4 mg/dL (8.5-10.1); CREATININE 0.67 mg/dL (0.55-1.02); POTASSIUM,K 4.9 mmol/L (3.5-5.1); PROTEIN TOTAL,TP 7.5 g/dL (6.4-8.2)
[2023-11-25 00:14] LABS: LACTIC ACID 0.6 mmol/L (0.4-2.0)
[2023-11-25 00:36] LABS: APPEARANCE,URINE CLEAR (CLEAR); BILIRUBIN,URINE NEGATIVE (NEGATIVE); COLOR,URINE YELLOW (YELLOW); GLUCOSE,URINE NEGATIVE (NEGATIVE); KETONES,URINE NEGATIVE (NEGATIVE); LEUKOCYTE ESTERASE,URINE NEGATIVE (NEGATIVE); NITRITE,URINE NEGATIVE (NEGATIVE); OCCULT BLOOD,URINE NEGATIVE (NEGATIVE); PROTEIN,URINE NEGATIVE (NEGATIVE); UROBILINOGEN,URINE 0.2 mg/dL (0.2-1.0)
[2023-11-25] MEDS: predniSONE 20 MG Tab PO ONE (00:50)
[2023-11-25] MEDS: Albuterol/Ipratropium 3.0-0.5 MG/3 ML Neb Soln NEB ONE ×2 (00:50→01:39)
[2023-11-25] MEDS: Azithromycin 250 MG Tab PO ONE (00:50)
[2023-11-25] MEDS: Take Home: Azithromycin 250 MG, 2 Tab Pack PO ONE (02:34)
[2023-11-25] MEDS: Take Home: predniSONE 20 MG, 4 Tab Pack PO ONE (02:35)
[2023-11-25] MEDS: Take Home: Albuterol/Ipratropium 3.0-0.5 MG/3 ML Neb Soln, 4 Neb Pack NEB ONE (02:45)
== END 2023-11-25 03:05 | disposition home or self-care (01) ==
LOC: DL.ED 22:43
DX: J44.1 Chronic obstructive pulmonary disease with (acute) exacerbation (principal); F17.210 Nicotine dependence, cigarettes, uncomplicated; E78.00 Pure hypercholesterolemia, unspecified; I10 Essential (primary) hypertension; Z86.16 Personal history of COVID-19; Z90.49 Acquired absence of other specified parts of digestive tract; Z79.899 Other long term (current) drug therapy; Z91.011 Allergy to milk products; Z91.012 Allergy to eggs; Z91.018 Allergy to other foods; Z88.2 Allergy status to sulfonamides
CPT/HCPCS: 36415; 71045; 80053; 81003; 83605; 85025; 87635; 87804; 94640; 94762; 99285; A9270; J7512; J7620-GY; U0002